=== PATIENT | male | born 1995 ===

== ENCOUNTER 2017-11-22 11:30 | Emergency (ER) | payer SELFPAY ==
--- NOTE | 2017-11-22 12:30 | ED PDOC ---
Arrival/HPI - General Chief Complaint: Anxiety Time Seen by Provider: 11/22/17 12:24 Historian: Patient - History of Present Illness Narrative History of Present Illness (Text): 11/22/17 12:24 22 y/o male, no significant pmh, psychiatric history including drug abuse heroine, nkda, bib c/o generalized bodyache/anxious/feeling cold for the past 2 days after stop using heroine. Pt. has been using heroine for the past 3 -4 months with his friends, stopped it for the and kids about 2-3 days ago , been having generalized bodyache feeling anxious and cold for the past 2-3 days, occasionally feeling suicidal from the withdrawing symptoms. Pt. has no homicidal or suicidal ideation now, no auditory or visual hallucination, no numbness or tingling, no palpitation, no chest pain or shortness of breath, no night sweat, no dizziness, no rash, no other medical or psychological complaints. Past Medical History - Provider Review Nursing Documentation Reviewed: Yes - Psychiatric Hx Psychophysiologic Disorder: No Hx Substance Use: Yes (HEROIN, CANNABIS) Family/Social History - Physician Review Nursing Documentation Reviewed: Yes Family/Social History: Unknown Family HX Smoking Status: Heavy Smoker > 10 Cigarettes Daily Hx Alcohol Use: Yes Frequency of alcohol use: Socially Hx Substance Use: Yes (HEROIN, CANNABIS) Allergies/Home Meds Allergies/Adverse Reactions: Allergies No Known Allergies Allergy (Verified 11/22/17 11:44) Home Medications: Home Meds Medication Instructions Recorded Confirmed No Known Home Med 11/22/17 11/22/17 Review of Systems - Review of Systems Constitutional: Fatigue. absent: Fevers Eyes: absent: Vision Changes ENT: absent: Hearing Changes, Rhinorrhea Respiratory: absent: SOB, Cough Cardiovascular: absent: Chest Pain Gastrointestinal: absent: Abdominal Pain, Nausea, Vomiting Musculoskeletal: Arthralgias, Myalgias. absent: Back Pain Skin: absent: Rash, Pruritis Neurological: absent: Headache, Dizziness Psychiatric: absent: Anxiety, Depression, Suicidal Ideation Physical Exam Vital Signs Reviewed: Yes Vital Signs Temp Pulse Resp BP Pulse Ox 11/22/17 17:00 68 18 114/72 99 11/22/17 15:00 74 18 121/78 98 11/22/17 13:32 72 18 118/79 98 11/22/17 11:44 98.1 F 85 16 119/76 99 Temperature: Afebrile Blood Pressure: Normal Pulse: Regular Respiratory Rate: Normal Appearance: Positive for: Uncomfortable Pain Distress: Moderate Mental Status: Positive for: Alert and Oriented X 3 - Systems Exam Head: Present: Atraumatic, Normocephalic Pupils: Present: PERRL Extroacular Muscles: Present: EOMI Conjunctiva: Present: Normal Ears: Present: NORMAL TM, Normal Canal. No: Erythema Mouth: Present: Moist Mucous Membranes Pharnyx: Present: Normal. No: ERYTHEMA, EXUDATE, TONSILS ENLARGED Nose (External): Present: Atraumatic. No: Abrasion, Contusion, Laceration, Lesions Nose (Internal): Present: Normal Inspection, No Active Bleeding, Rhinorrhea. No : Septal Hematoma, Epistaxis Neck: Present: Normal Range of Motion Respiratory/Chest: Present: Clear to Auscultation, Good Air Exchange. No: Respiratory Distress, Accessory Muscle Use Cardiovascular: Present: Regular Rate and Rhythm, Normal S1, S2. No: Murmurs Abdomen: No: Tenderness, Distention, Peritoneal Signs Back: Present: Normal Inspection Upper Extremity: Present: Normal Inspection, Normal ROM, NORMAL PULSES, Neurovascularly Intact, Capillary Refill < 2s. No: Cyanosis, Edema, Tenderness , Swelling, Erythema, Deformity Lower Extremity: Present: Normal Inspection, NORMAL PULSES, Normal ROM, Neurovascularly Intact, Capillary Refill < 2 s. No: Edema, Skye's Sign, Tenderness, Swelling, Erythema, Deformity Neurological: Present: GCS=15, CN II-XII Intact, Motor Func Grossly Intact, Gait Normal, Memory Normal Skin: Present: Warm, Dry, Normal Color. No: Rashes Lymphatic: No: Cervical Adenopathy Psychiatric: Present: Alert, Oriented x 3, Normal Insight, Normal Concentration , Anxious Medical Decision Making ED Course and Treatment: 11/22/17 12:41 Differential: Heroine Withdrawal vs. Rhabdomylosis vs. Electrolyte imbalance vs. UTI vs. depression/suicidal risk? -labs/ua -cxr -IVF/ativan 1mg -PES paged -Observe and reassess 11/22/17 13:58 -Chest xray: No active disease. -Labs show wbc 14.6, afebrile, likely stress and heroine withdrawal symptoms induced -UA show no UTI -UDS show +opiate and +cannabinoid -Pt. feels well after the IV ativan -Pt. is medically clear and stable for the psychiatric evaluation, pending PES 11/22/17 17:00 -Pt. complaining about lower back pain from the stretcher, no midline tenderness or paraspinal tenderness, no fall or trauma, no saddling gait, able to walk and stand, toradol 30mg IV ordered. -Pt. is waiting for the [facility] detox bed. 11/22/17 18:28 -Pt. has a bed at the [facility] detox floor, accepted by Dr. Kimbrough, ready for transfer, transfer paper signed. -Pt. request ativan prior to arrival as he feels restlessness with generalized pain on muscles, ativan 1mg IV ordered again. 11/22/17 18:32 -I spoke to Dr. Taylor, ER attending at [facility], discussed about the case /labs/radiology result, agreed to accept this patient and will notify psychiatric detox floor once arrival. -EKG: NSR @ 67 BPM, no ST elevation or depression, no T wave inversion. - Lab Interpretations Lab Results: 11/22/17 12:50 11/22/17 13:00 Lab Results 11/22/17 13:00: Urine Color Yellow, Urine Appearance Clear, Urine pH 6.5, Ur Specific Minong 1.020, Urine Protein 30 H, Urine Glucose (UA) Negative, Urine Ketones 40 H, Urine Blood Negative, Urine Nitrate Negative, Urine Bilirubin Negative, Urine Urobilinogen 1.0 H, Ur Leukocyte Esterase Negative, Urine RBC 0 - 2, Urine WBC 0 - 2, Ur Epithelial Cells 0 - 2, Urine Bacteria Few 11/22/17 13:00: Urine Opiates Screen Positive H, Urine Methadone Screen Negative , Ur Barbiturates Screen Negative, Ur Phencyclidine Scrn Negative, Ur Amphetamines Screen Negative, U Benzodiazepines Scrn Negative, U Oth Cocaine Metabols Negative, U Cannabinoids Screen Positive H 11/22/17 13:00: Sodium 145, Potassium 3.8, Chloride 109 H, Carbon Dioxide 22, Anion Gap 17, BUN 13, Creatinine 0.7 L, Est GFR ( Amer) > 60, Est GFR ( Non-Af Amer) > 60, Random Glucose 112 H, Calcium 9.4, Total Bilirubin 1.8 H, AST 26, ALT 23, Alkaline Phosphatase 68, Total Creatine Kinase 73, Total Protein 7.4, Albumin 4.4, Globulin 3.0, Albumin/Globulin Ratio 1.5 11/22/17 12:50: Alcohol, Quantitative < 10 11/22/17 12:50: Salicylates < 1 L, Acetaminophen < 10.0 L 11/22/17 12:50: WBC 14.6 H, RBC 4.81, Hgb 15.0, Hct 42.9, MCV 89.2, MCH 31.2, MCHC 35.0, RDW 12.4, Plt Count 325, MPV 9.9, Gran % 85.0 H, Lymph % (Auto) 10.7 L, Smyth % (Auto) 4.2, Eos % (Auto) 0.0 L, Baso % (Auto) 0.1, Gran # 12.41 H, Lymph # (Auto) 1.6, Smyth # (Auto) 0.6, Eos # (Auto) 0.0, Baso # (Auto) 0.01 I have reviewed the lab results: Yes - RAD Interpretation Radiology Orders: 11/22/17 12:32 CHEST PORTABLE [RAD] Stat Date of service: 11/22/2017 HISTORY: medical clearance COMPARISON: No prior. FINDINGS: LUNGS: No active pulmonary disease. PLEURA: No significant pleural effusion identified, no pneumothorax apparent. CARDIOVASCULAR: Normal. OSSEOUS STRUCTURES: No significant abnormalities. VISUALIZED UPPER ABDOMEN: Normal. OTHER FINDINGS: None. IMPRESSION: No active disease. Eight Section Blower: Radiologist - EKG Interpretation EKG Interpretation (Text): 11/22/17 18:43 -EKG: NSR @ 67 BPM, no ST elevation or depression, no T wave inversion. Interpreted by ED Physician: Yes Type: 12 lead EKG - Medication Orders Current Medication Orders: Discontinued Medications Sodium Chloride (Sodium Chloride 0.9%) 1,000 mls @ 999 mls/hr IV .Q1H1M STA Stop: 11/22/17 13:31 Last Admin: 11/22/17 12:50 Dose: 999 mls/hr eMAR Start Stop Document 11/22/17 12:50 GMD (Rec: 11/22/17 12:51 GMD [id number]) Intravenous Solution Start Date 11/22/17 Start Time 12:50 End Date 11/22/17 End time 13:51 Total Infusion Time 61 Ketorolac Tromethamine (Toradol) 30 mg IVP STAT STA Stop: 11/22/17 17:01 Last Admin: 11/22/17 17:22 Dose: 30 mg MAR Pain Assessment Document 11/22/17 17:22 GMD (Rec: 11/22/17 17:22 GMD [id number]) Pain Reassessment Is this a pain reassessment? No IVP Administration Document 11/22/17 17:22 GMD (Rec: 11/22/17 17:22 GMD [id number]) Charges for Administration # of IVP Administrations 1 Lorazepam (Ativan) 1 mg IVP ONCE ONE PRN Reason: Protocol Stop: 11/22/17 12:32 Last Admin: 11/22/17 12:50 Dose: 1 mg IVP Administration Document 11/22/17 12:50 GMD (Rec: 11/22/17 12:50 GMD [id number]) Charges for Administration # of IVP Administrations 1 Lorazepam (Ativan) 1 mg IVP ONCE ONE PRN Reason: Protocol Stop: 11/22/17 18:25 - PA / SECRETARY BOOKKEEPER / Resident Statement / has reviewed & agrees with the documentation as recorded. Disposition/Present on Arrival - Present on Arrival Any Indicators Present on Arrival: No History of DVT/PE: No History of Uncontrolled Diabetes: No Urinary Catheter: No History of Decub. Ulcer: No History Surgical Site Infection Following: None - Disposition Have Diagnosis and Disposition been Completed?: Yes Diagnosis: Heroin abuse, Drug abuse, Leukocytosis, Drug withdrawal Disposition: Transfer [facility] Disposition Time: 12:42 Patient Plan: Transfer To ([facility] [place] ER/Detox Psy floor) Patient Problems: Current Active Problems Problem Status Onset Heroin abuse Acute Drug abuse Acute Leukocytosis Acute Drug withdrawal Acute Condition: STABLE Forms: [employer] (Danish)
[2017-11-22] MEDS ORDERED: Sodium Chloride 0.9% 1,000 ML IV STA (12:31)
[2017-11-22 12:59] LABS: BASO # 0.01 K/mm3 (0.0-2.0); BASO % 0.1 % (0.0-3.0); GRAN # 12.41 (1.4-6.5); LYMPH # 1.6 (1.2-3.4); LYMPH % 10.7 % (22.0-35.0); MEAN CELL VOLUME 89.2 fl (80.0-105.0); MEAN CORPUSCULAR HEMOGLOBIN 31.2 pg (25.0-35.0); MEAN PLATELET VOLUME 9.9 fl (7.0-11.0); MONO # 0.6 (0.1-0.6); MONO % 4.2 % (1.0-6.0); RBC 4.81 10^6/uL (3.5-6.1); RED CELL DISTRIBUTION WIDTH 12.4 % (11.5-14.5); WHITE BLOOD COUNT 14.6 10^3/ul (4.5-11.0)
[2017-11-22 13:05] LABS: PH,URINE 6.5 (4.7-8.0); URINE BILIRUBIN NEGATIVE (NEGATIVE); URINE BLOOD NEGATIVE (NEGATIVE); URINE GLUCOSE (UA) NEGATIVE (NEGATIVE); URINE LEUKOCYTE ESTERASE NEGATIVE Leu/uL (NEGATIVE); URINE PROTEIN 30 mg/dL (<30 mg/dL)
[2017-11-22 13:08] LABS: URINE APPEARANCE CLEAR (CLEAR); URINE COLOR YELLOW (YELLOW)
--- NOTE | 2017-11-22 13:09 | RAD ---
Date of service: 11/22/2017 HISTORY: medical clearance COMPARISON: No prior. FINDINGS: LUNGS: No active pulmonary disease. PLEURA: No significant pleural effusion identified, no pneumothorax apparent. CARDIOVASCULAR: Normal. OSSEOUS STRUCTURES: No significant abnormalities. VISUALIZED UPPER ABDOMEN: Normal. OTHER FINDINGS: None. IMPRESSION: No active disease.
[2017-11-22 13:28] LABS: ALB/GLOB RATIO 1.5 (1.1-1.8); ALBUMIN 4.4 g/dL (3.0-4.8); ALT/SGPT 23 U/L (7-56); AST/SGOT 26 U/L (17-59); BLOOD UREA NITROGEN 13 mg/dL (7-21); CALCIUM 9.4 mg/dL (8.4-10.5); GFR AFRICAN-AMERICAN > 60; GFR NON-AFRICAN AMERICAN > 60
[2017-11-22 13:30] LABS: URINE EPITHELIAL CELLS 0 - 2 /hpf (0-5); URINE RBC 0 - 2 /hpf (0-2); URINE WBC 0 - 2 /hpf (0-6)
[2017-11-22 13:31] LABS: URINE BACTERIA FEW (NEG)
[2017-11-22 13:35] LABS: BARBITURATES, UR NEGATIVE (NEGATIVE); BENZODIAZEPINES, UR NEGATIVE (NEGATIVE); OPIATES, UR POSITIVE (NEGATIVE); PHENCYCLIDINE, UR NEGATIVE (NEGATIVE)
[2017-11-22 14:40] LABS: ACETAMINOPHEN < 10.0 ug/ml (10.0-20.0); SALICYLATE < 1 mg/dL (2.0-20.0)
[2017-11-22 15:02] VITALS: RESP 18
[2017-11-22 19:34] VITALS: BP 97/50; PULSE 76; TEMP 98.6; O2SAT 98
--- NOTE | 2017-11-23 08:34 | CARD ---
APPROVED REPORT Date of service: 11/22/2017 EKG Measurement Heart [id number] <Conclusion> Normal sinus rhythm Normal ECG
== END 2017-11-22 20:03 | disposition short-term general hospital (02) ==
LOC: ED 11:30
DX: F11.10 Opioid abuse, uncomplicated (principal); D72.829 Elevated white blood cell count, unspecified; F19.939 Other psychoactive substance use, unspecified with withdrawal, unspecified; F17.210 Nicotine dependence, cigarettes, uncomplicated
CPT/HCPCS: 71045; 80053; 81001; 82550; 85025; 90791; 93005; 96361; 96374; 96375; 96376; 99285; G0480; J1885; J2060; J7030

== ENCOUNTER 2018-01-13 21:16 | Emergency (ER) | payer SELFPAY ==
[2018-01-13 22:44] VITALS: RESP 18; TEMP 98.6; O2SAT 100; BMI 20.3
--- NOTE | 2018-01-14 00:39 | ED PDOC ---
Arrival/HPI - History of Present Illness Narrative History of Present Illness (Text): 01/14/18 00:49 22 y/o male with PMH of heroin abuse presents to the ED c/o lower back pain and anxiety x 10 hours. Pt states he has been without heroin since yesterday and that these symptoms are typical of his usual withdrawal. He snorted 2 bags of heroin yesterday and is withdrawing because he ran out of the drug. Pt has been an addict for approx. 5 months. Denies using any other substances. Denies trauma, fever, abdominal pain, N/V, headache, dizziness, chest pain, palpitations, difficulty breathing, rash, bowel or bladder incontinence, saddle anesthesia. <Kena Mckeon - Last Filed: 01/14/18 00:34> <Yo Brunner - Last Filed: 01/17/18 10:30> - General Chief Complaint: Substance Abuse Time Seen by Provider: 01/13/18 22:03 Past Medical History - Provider Review Nursing Documentation Reviewed: Yes - Cardiac Hx Hypertension: No - Pulmonary Hx Tuberculosis: No - Neurological Hx Seizures: No - Hematological/Oncological Hx Cancer: No - Musculoskeletal/Rheumatological Hx Falls: No - Genitourinary/Gynecological Hx Sexually Transmitted Diseases: No - Psychiatric Hx Psychophysiologic Disorder: No Hx Substance Use: Yes - Anesthesia Hx Anesthesia: No Hx Anesthesia Reactions: No Hx Malignant Hyperthermia: No <Kena Mckeon - Last Filed: 01/14/18 00:34> Family/Social History - Physician Review Nursing Documentation Reviewed: Yes Family/Social History: No Known Family HX Smoking Status: Heavy Smoker > 10 Cigarettes Daily Hx Alcohol Use: Yes Hx Substance Use: Yes Substance used: heroin, marijuana <Kena Mckeon - Last Filed: 01/14/18 00:34> Allergies/Home Meds <Kena Mckeon - Last Filed: 01/14/18 00:34> <Yo Brunner - Last Filed: 01/17/18 10:30> Allergies/Adverse Reactions: Allergies alprazolam [From Xanax] Allergy (Verified 01/13/18 22:17) RASH Home Medications: Home Meds Medication Instructions Recorded Confirmed RX: No Known Home Med 01/13/18 01/13/18 Review of Systems - Physician Review All systems were reviewed & negative as marked: Yes - Review of Systems Constitutional: Fatigue. absent: Fevers Eyes: Normal ENT: Normal Respiratory: Normal. absent: Cough, Sputum Cardiovascular: Normal. absent: Chest Pain, Palpitations, Syncope Gastrointestinal: Normal Musculoskeletal: Back Pain Skin: Normal Neurological: Normal. absent: Headache, Dizziness Endocrine: Diaphoresis Psychiatric: Anxiety <Kena Mckeon - Last Filed: 01/14/18 00:34> Physical Exam Vital Signs Reviewed: Yes Vital Signs Temp Pulse Resp BP Pulse Ox 01/13/18 22:30 98.6 F 68 18 121/70 100 Temperature: Afebrile Blood Pressure: Normal Pulse: Regular Respiratory Rate: Normal Appearance: Positive for: Well-Appearing Pain Distress: None Mental Status: Positive for: Alert and Oriented X 3 - Systems Exam Head: Present: Atraumatic, Normocephalic Pupils: Present: PERRL Extroacular Muscles: Present: EOMI Conjunctiva: Present: Normal Mouth: Present: Moist Mucous Membranes Pharnyx: Present: Normal. No: ERYTHEMA, EXUDATE Nose (Internal): Present: Normal Inspection, Moist, Clear Mucous Neck: Present: Normal Range of Motion. No: Paraspinal Tenderness Respiratory/Chest: Present: Clear to Auscultation, Good Air Exchange. No: Respiratory Distress, Accessory Muscle Use Cardiovascular: Present: Regular Rate and Rhythm, Normal S1, S2. No: Murmurs Abdomen: No: Tenderness, Distention, Peritoneal Signs Back: Present: Paraspinal Tenderness (lumbar). No: CVA Tenderness, Midline Tenderness Upper Extremity: Present: Normal Inspection, Normal ROM, NORMAL PULSES. No: Cyanosis, Edema Lower Extremity: Present: Normal Inspection, NORMAL PULSES, Normal ROM. No: Edema Neurological: Present: GCS=15, CN II-XII Intact, Speech Normal Skin: Present: Warm, Dry, Normal Color. No: Rashes Lymphatic: No: Cervical Adenopathy Psychiatric: Present: Alert, Oriented x 3, Normal Insight, Normal Concentration <Kena Mckeon - Last Filed: 01/14/18 00:34> Vital Signs Temp Pulse Resp BP Pulse Ox 01/14/18 00:30 59 L 18 120/79 100 01/13/18 22:30 98.6 F 68 18 121/70 100 <Yo Brunner - Last Filed: 01/17/18 10:30> Medical Decision Making ED Course and Treatment: 01/14/18 00:35 22 y/o male with PMH of heroin abuse presents to the ED c/o lower back pain and anxiety x 10 hours. Pt states he has been without heroin since yesterday and that these symptoms are typical of his usual withdrawal. He snorted 2 bags of heroin yesterday and is withdrawing because he ran out of the drug. Pt has been an addict for approx. 5 months. Denies using any other substances. Denies trauma, fever, abdominal pain, N/V, headache, dizziness, chest pain, palpitations, difficulty breathing, rash, bowel or bladder incontinence, saddle anesthesia. Physical exam reveals mild lumbar paraspinal tenderness. Cardiac, pulm, and abdominal exam normal. will give tylenol for pain will give vistaril for anxiety (per Dr. Brunner) Pt educated on the dangers of heroin use Impression: Opioid withdrawal Plan: Take tylenol as needed for pain Followup with clinic within 2 days Refrain from using heroin Return to ED if symptoms persist or worsen Plan discussed with pt and partner who understand and agree. Pt comfortable with discharge home. - Medication Orders Current Medication Orders: Discontinued Medications Acetaminophen (Tylenol 325mg Tab) 650 mg PO STAT STA Stop: 01/13/18 22:47 Last Admin: 01/13/18 22:57 Dose: 650 mg MAR Pain/Vitals Document 01/13/18 22:57 AD (Rec: 01/13/18 22:58 [place] [facility] [id number] Location Upper or Lower Lower Pain Location Body Site Back Intensity 5 Scale Used Numeric Hydroxyzine Pamoate (Vistaril) 25 mg PO STAT STA; Protocol Stop: 01/13/18 23:18 Last Admin: 01/13/18 23:56 Dose: 25 mg Lorazepam (Ativan) 1 mg PO ONCE ONE; Protocol Stop: 01/13/18 22:59 Last Admin: 01/13/18 23:56 Dose: Not Given Non-Admin Reason: allergy to benzos <MotterKena - Last Filed: 01/14/18 00:34> - Medication Orders Current Medication Orders: Discontinued Medications Acetaminophen (Tylenol 325mg Tab) 650 mg PO STAT STA Stop: 01/13/18 22:47 Last Admin: 01/13/18 22:57 Dose: 650 mg MAR Pain/Vitals Document 01/13/18 22:57 AD (Rec: 01/13/18 22:58 AD [facility] [id number] Location Upper or Lower Lower Pain Location Body Site Back Intensity 5 Scale Used Numeric Hydroxyzine Pamoate (Vistaril) 25 mg PO STAT STA; Protocol Stop: 01/13/18 23:18 Last Admin: 01/13/18 23:56 Dose: 25 mg Lorazepam (Ativan) 1 mg PO ONCE ONE; Protocol Stop: 01/13/18 22:59 Last Admin: 01/13/18 23:56 Dose: Not Given Non-Admin Reason: allergy to benzos <Yo Brunner - Last Filed: 01/17/18 10:30> - PA / EXERCISER / Resident Statement / has reviewed & agrees with the documentation as recorded. <Yo Brunner - Last Filed: 01/17/18 10:30> Disposition/Present on Arrival - Present on Arrival Any Indicators Present on Arrival: No History of DVT/PE: No History of Uncontrolled Diabetes: No Urinary Catheter: No History of Decub. Ulcer: No History Surgical Site Infection Following: None - Disposition Have Diagnosis and Disposition been Completed?: Yes Disposition Time: 11:45 Patient Plan: Discharge <Kena Mckeon - Last Filed: 01/14/18 00:34> <Yo Brunner - Last Filed: 01/17/18 10:30> - Disposition Diagnosis: Withdrawal from opioids Disposition: HOME/ ROUTINE Condition: IMPROVED Discharge Instructions (ExitCare): Drug Abuse and Drug Addiction (DC) Additional Instructions: Take tylenol as needed for pain Followup with clinic within 2 days Refrain from using heroin Return to ED if symptoms persist or worsen Referrals: Sabrina Lu MD [Medical Doctor] - Follow up with primary Forms: [employer] (Sri Lankan)
[2018-01-14 00:58] VITALS: BP 120/79; PULSE 59
== END 2018-01-14 00:30 | disposition home or self-care (01) ==
LOC: ED 21:16
DX: F11.23 Opioid dependence with withdrawal (principal); F17.210 Nicotine dependence, cigarettes, uncomplicated
CPT/HCPCS: 99283; Q0177

== ENCOUNTER 2018-02-27 17:32 | Emergency (ER) | payer SELFPAY ==
[2018-02-27 17:33] VITALS: BMI 20.3
--- NOTE | 2018-02-27 18:30 | ED PDOC ---
Arrival/HPI - General Chief Complaint: Altered Mental Status Time Seen by Provider: 02/27/18 17:55 Historian: Patient - History of Present Illness Narrative History of Present Illness (Text): 02/27/18 18:26 22 yo M presents to the ER after being brought in by EMS for evaluation. Patient states that he was found by police at a house (could not specify which house). He only reports of low back pain. Denies any trauma, injury, heavy lifting, headache, dizziness, CP, SOB, abdominal pain, nausea, vomiting, urinary symptoms, bowel/bladder incontinence, weakness or numbness, SI/HI, hallucinations. Denies any alcohol or drug use. Past Medical History - Cardiac Hx Hypertension: No - Pulmonary Hx Tuberculosis: No - Neurological Hx Seizures: No - Hematological/Oncological Hx Cancer: No - Musculoskeletal/Rheumatological Hx Falls: No - Genitourinary/Gynecological Hx Sexually Transmitted Diseases: No - Psychiatric Hx Psychophysiologic Disorder: No Hx Substance Use: Yes - Anesthesia Hx Anesthesia: No Hx Anesthesia Reactions: No Hx Malignant Hyperthermia: No Family/Social History Family/Social History: No Known Family HX Smoking Status: Heavy Smoker > 10 Cigarettes Daily Hx Alcohol Use: Yes Frequency of alcohol use: Few days per week Hx Substance Use: Yes Substance used: heroin, marijuana Allergies/Home Meds Allergies/Adverse Reactions: Allergies alprazolam [From Xanax] Allergy (Verified 02/27/18 17:47) RASH Home Medications: Home Meds Medication Instructions Recorded Confirmed No Known Home Med 01/13/18 02/27/18 Review of Systems - Review of Systems Constitutional: absent: Fatigue, Fevers Respiratory: absent: SOB, Cough Cardiovascular: absent: Chest Pain, Palpitations, Edema Gastrointestinal: absent: Abdominal Pain, Diarrhea, Vomiting Genitourinary Male: absent: Dysuria, Frequency, Hematuria Musculoskeletal: Back Pain. absent: Arthralgias, Neck Pain Skin: absent: Rash, Pruritis, Skin Lesions Neurological: absent: Headache, Dizziness Physical Exam Temperature: Afebrile Blood Pressure: Normal Pulse: Regular Respiratory Rate: Normal Appearance: Positive for: Well-Appearing, Non-Toxic, Comfortable Pain Distress: None Mental Status: Positive for: Alert and Oriented X 3 - Systems Exam Head: Present: Atraumatic, Normocephalic Pupils: Present: PERRL Extroacular Muscles: Present: EOMI Conjunctiva: Present: Normal Mouth: Present: Moist Mucous Membranes Neck: Present: Normal Range of Motion. No: MIDLINE TENDERNESS, Paraspinal Tenderness Respiratory/Chest: Present: Clear to Auscultation, Good Air Exchange. No: Respiratory Distress, Accessory Muscle Use Cardiovascular: Present: Regular Rate and Rhythm, Normal S1, S2. No: Murmurs Abdomen: No: Tenderness, Distention, Peritoneal Signs Back: Present: Normal Inspection. No: Midline Tenderness, Paraspinal Tenderness Upper Extremity: Present: Normal Inspection. No: Cyanosis, Edema Lower Extremity: Present: Normal Inspection. No: Edema Neurological: Present: GCS=15, CN II-XII Intact, Speech Normal, Motor Func Grossly Intact, Normal Sensory Function Skin: Present: Warm, Dry, Normal Color. No: Rashes Psychiatric: Present: Alert, Oriented x 3 Medical Decision Making ED Course and Treatment: 02/27/18 18:29 Previous medical records reviewed, patient was last seen here in Dec for back pain and heroin withdrawal. 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 Alcohol (-). UDS +cocaine, cannabis, opiates. 22:00 On reevaluation, patient is now more awake alert and oriented 3 in no acute distress, reports no back pain, he is able to give me his exact address, states that he feels well and wants to go home. Patient able to stand, ambulate with a steady gait, no tremors, no slurred speech, repeat neuro exam shows no focal findings. Patient is stable for d/c. Advised to follow up with primary care physician or the clinic in 1-2 days without fail. Advised to seek help for his cocaine and opiate use. Return to the emergency room at any time for any new or worsening symptoms. - PA / ORTHOPAEDIC SURGEON / Resident Statement MD/DO has reviewed & agrees with the documentation as recorded. Disposition/Present on Arrival - Present on Arrival Any Indicators Present on Arrival: No History of DVT/PE: No History of Uncontrolled Diabetes: No Urinary Catheter: No History of Decub. Ulcer: No History Surgical Site Infection Following: None - Disposition Have Diagnosis and Disposition been Completed?: Yes Diagnosis: Polysubstance abuse Disposition: HOME/ ROUTINE Disposition Time: 22:00 Patient Plan: Discharge Patient Problems: Current Active Problems Problem Status Onset Polysubstance abuse Acute Condition: STABLE Discharge Instructions (ExitCare): Polysubstance Abuse Ref[place]: [facility] [place] [facility] [place] - Follow up with primary Forms: [employer] (Gibraltarian)
[2018-02-27 19:37] LABS: BARBITURATES, UR NEGATIVE (NEGATIVE); BENZODIAZEPINES, UR NEGATIVE (NEGATIVE); OPIATES, UR POSITIVE (NEGATIVE); PHENCYCLIDINE, UR NEGATIVE (NEGATIVE)
[2018-02-27 23:12] VITALS: RESP 17; O2SAT 98
[2018-02-27 23:13] VITALS: BP 105/58; PULSE 91; TEMP 98.2
--- NOTE | 2018-02-28 10:38 | CARD ---
APPROVED REPORT Date of service: 02/27/2018 EKG Measurement Heart [id number] <Conclusion> Sinus bradycardia Otherwise normal ECG
== END 2018-02-27 23:12 | disposition home or self-care (01) ==
LOC: ED 17:32
DX: F19.10 Other psychoactive substance abuse, uncomplicated (principal)
CPT/HCPCS: 93005; 99285; G0480

== ENCOUNTER 2018-06-27 19:19 | Emergency (ER) | payer SELFPAY | END 2018-06-27 20:44 | disposition home or self-care (01) | LOC: ED 19:19 ==

== ENCOUNTER 2018-09-05 07:07 | Inpatient (IN) | payer MEDICAID, OTHER ==
[2018-09-05 07:07] VITALS: BMI 20.3
--- NOTE | 2018-09-05 07:44 | ED PDOC ---
Arrival/HPI - General Chief Complaint: Psychiatric Evaluation Time Seen by Provider: 09/05/18 07:10 Historian: Patient - History of Present Illness Narrative History of Present Illness (Text): 09/05/18 07:46 A 22 year old male, whose past medical history includes chronic heroin use, presents to the emergency department complaining of suicidal ideation. Patient admits to snorting heroin, last was yesterday afternoon. Patient currently complaining of experiencing tremulousness, lack of concentration, body aches, and abdominal pain. Patient reports last night he attempted to hang himself in his closet by tying a rope around his neck, but was unsuccessful. Patient denies any other complaints at this time. Past Medical History - Provider Review Nursing Documentation Reviewed: Yes - Infectious Disease Hx of Infectious Diseases: None - Cardiac Hx Hypertension: No - Pulmonary Hx Tuberculosis: No - Neurological Hx Seizures: No - Hematological/Oncological Hx Cancer: No - Musculoskeletal/Rheumatological Hx Falls: No - Genitourinary/Gynecological Hx Sexually Transmitted Diseases: No - Psychiatric Hx Psychophysiologic Disorder: No Hx Substance Use: Yes - Anesthesia Hx Anesthesia: No Hx Anesthesia Reactions: No Hx Malignant Hyperthermia: No Family/Social History - Physician Review Nursing Documentation Reviewed: Yes Family/Social History: No Known Family HX Smoking Status: Heavy Smoker > 10 Cigarettes Daily Hx Alcohol Use: Yes Hx Substance Use: Yes Substance used: heroin, marijuana Allergies/Home Meds Allergies/Adverse Reactions: Allergies alprazolam [From Xanax] Allergy (Verified 09/05/18 07:20) RASH Home Medications: Home Meds Medication Instructions Recorded Confirmed No Known Home Med 01/13/18 02/27/18 Review of Systems - Physician Review All systems were reviewed & negative as marked: Yes - Review of Systems Gastrointestinal: Abdominal Pain Musculoskeletal: Myalgias Neurological: Other (tremulousness) Psychiatric: Suicidal Ideation, Other (lack of concentration) Physical Exam Vital Signs Reviewed: Yes Vital Signs Temp Pulse Resp BP Pulse Ox 09/05/18 07:19 97.4 F L 58 L 18 106/52 L 100 09/05/18 07:16 57 L 20 106/52 L 100 Blood Pressure: Normal Pulse: Regular Respiratory Rate: Normal Appearance: Positive for: Unkept Pain Distress: None Mental Status: Positive for: Alert and Oriented X 3 - Systems Exam Head: Present: Ecchymosis (several ecchymotic areas on faces), Other (skin lesions to face) Pupils: Present: PERRL Extroacular Muscles: Present: EOMI Conjunctiva: Present: Normal Mouth: Present: Moist Mucous Membranes Neck: Present: Normal Range of Motion Respiratory/Chest: Present: Clear to Auscultation, Good Air Exchange. No: Respiratory Distress, Accessory Muscle Use Cardiovascular: Present: Bradycardic Abdomen: Present: Tenderness (tender to palpation to epigastric region). No: Distention, Peritoneal Signs, Guarding Back: Present: Normal Inspection Upper Extremity: Present: Normal Inspection. No: Cyanosis, Edema Lower Extremity: Present: Normal Inspection. No: Edema Neurological: Present: GCS=15, CN II-XII Intact, Speech Normal, Other (tremulous) Skin: Present: Warm, Dry, Normal Color. No: Rashes Psychiatric: Present: Alert, Oriented x 3, Normal Insight, Normal Concentration Medical Decision Making ED Course and Treatment: 09/05/18 07:51 Impression: 22 year old male with SI, tremulousness, body aches, and abdominal pain. Plan: -- Labs -- Chest X-ray -- Urinalysis --EKG --Drug Screen --UA -- Ativan -- Reassess and disposition Prior Visits: Patient was last seen here in the emergency department on 06/27/2018 for withdrawal and no suidicidal ideation. Patient was seen by HANNAH Rogers who referred to detox facilities available for him the following day to follow-up with. Patient at the time agreed and stated he would do so. Patient was discharged home. Progress Notes: 09/05/18 10:39 Patient medically cleared and evaluated by HANNAH special forces medical sergeant. HANNAH special forces medical sergeant evaluates patient offering him detox at [facility], but after discussion with the attending, clears patient for admission. - Lab Interpretations Lab Results: 09/05/18 07:30 09/05/18 07:30 Lab Results 09/05/18 07:30: Alcohol, Quantitative < 10 09/05/18 07:30: Salicylates < 1 L, Acetaminophen < 10.0 L 09/05/18 07:30: Sodium 143, Potassium 4.2, Chloride 107, Carbon Dioxide 22, Anion Gap 18, BUN 11, Creatinine 1.1, Est GFR ( Amer) > 60, Est GFR (Non- Af Amer) > 60, Random Glucose 102, Calcium 9.8, Magnesium 2.1, Total Bilirubin 1.1, AST 35, ALT 30, Alkaline Phosphatase 91, Total Protein 8.0, Albumin 4.4, Globulin 3.5, Albumin/Globulin Ratio 1.2 09/05/18 07:30: WBC 10.6, RBC 4.58, Hgb 14.3, Hct 42.7, MCV 93.2 D, MCH 31.2, MCHC 33.5, RDW 12.9, Plt Count 358, MPV 9.4, Neut % (Auto) 70.1 H, Lymph % (Auto) 23.3, [place] % (Auto) 5.7, Eos % (Auto) 0.8 L, Baso % (Auto) 0.1, Lymph # (Auto) 2.5, [place] # (Auto) 0.6, Eos # (Auto) 0.1, Baso # (Auto) 0.01, Absolute Neuts (auto) 7.43 H I have reviewed the lab results: Yes - RAD Interpretation Narrative RAD Interpretations (Text): 09/05/2018 10:09 Chest X-ray IMPRESSION: No active disease. Dictator: Dustin Mckeon MD Radiology Orders: 09/05/18 07:26 CHEST PORTABLE [RAD] Stat - EKG Interpretation EKG Interpretation (Text): 09/05/18 11:17 NSR @ [address] aberration No T wave inversions No QT prolongation Interpreted by ED Physician: Yes Type: 12 lead EKG - Scribe Statement The provider has reviewed the documentation as recorded by the Manju Connors Provider Scribe Attestation: All medical record entries made by the Manju were at my direction and personally dictated by me. I have reviewed the chart and agree that the record accurately reflects my personal performance of the history, physical exam, medical decision making, and the department course for this patient. I have also personally directed, reviewed, and agree with the discharge instructions and disposition. Disposition/Present on Arrival - Present on Arrival History of DVT/PE: No History of Uncontrolled Diabetes: No Urinary Catheter: No History of Decub. Ulcer: No History Surgical Site Infection Following: None - Disposition
[2018-09-05 07:45] LABS: BASO # 0.01 K/mm3 (0.0-2.0); BASO % 0.1 % (0.0-3.0); EOS # 0.1 (0.0-0.7); EOS % 0.8 % (1.5-5.0); HEMOGLOBIN 14.3 g/dL (14.0-18.0); LYMPH # 2.5 (1.2-3.4); LYMPH % 23.3 % (22.0-35.0); MEAN CELL VOLUME 93.2 fl (80.0-105.0); MEAN CORPUSCULAR HEMOGLOBIN 31.2 pg (25.0-35.0); MEAN CORPUSCULAR HGB CONC 33.5 g/dl (31.0-37.0); MEAN PLATELET VOLUME 9.4 fl (7.0-11.0); MONO # 0.6 (0.1-0.6); MONO % 5.7 % (1.0-6.0); RBC 4.58 10^6/uL (3.5-6.1); RED CELL DISTRIBUTION WIDTH 12.9 % (11.5-14.5); WHITE BLOOD COUNT 10.6 10^3/uL (4.5-11.0)
[2018-09-05 07:51] LABS: ALB/GLOB RATIO 1.2 (1.1-1.8); ALBUMIN 4.4 g/dL (3.0-4.8); ALT/SGPT 30 U/L (7-56); AST/SGOT 35 U/L (17-59); BLOOD UREA NITROGEN 11 mg/dL (7-21); CALCIUM 9.8 mg/dL (8.4-10.5); GFR NON-AFRICAN AMERICAN > 60
[2018-09-05 07:52] LABS: ACETAMINOPHEN < 10.0 ug/ml (10.0-20.0); SALICYLATE < 1 mg/dL (2.0-20.0)
[2018-09-05 09:52] VITALS: O2SAT 98
--- NOTE | 2018-09-05 10:13 | RAD ---
Date of service: 09/05/2018 HISTORY: psych prescreen COMPARISON: 11/22/2017 TECHNIQUE: 1 view obtained. FINDINGS: LUNGS: No active pulmonary disease. PLEURA: No significant pleural effusion identified, no pneumothorax apparent. CARDIOVASCULAR: No aortic atherosclerotic calcification present. Normal cardiac size. No pulmonary vascular congestion. OSSEOUS STRUCTURES: No significant abnormalities. VISUALIZED UPPER ABDOMEN: Normal. OTHER FINDINGS: None. IMPRESSION: No active disease.
[2018-09-05 10:59] LABS: URINE BILIRUBIN NEGATIVE (NEGATIVE); URINE BLOOD NEGATIVE (NEGATIVE); URINE GLUCOSE (UA) NEGATIVE (NEGATIVE); URINE LEUKOCYTE ESTERASE NEGATIVE Leu/uL (NEGATIVE); URINE PROTEIN 30 mg/dL (<30 mg/dL); URINE UROBILINOGEN 0.2 E.U./dL (<1 E.U./dL)
[2018-09-05 11:00] LABS: URINE APPEARANCE CLEAR (CLEAR); URINE COLOR YELLOW (YELLOW)
[2018-09-05 11:11] LABS: BARBITURATES, UR NEGATIVE (NEGATIVE); BENZODIAZEPINES, UR NEGATIVE (NEGATIVE); OPIATES, UR POSITIVE (NEGATIVE); PHENCYCLIDINE, UR NEGATIVE (NEGATIVE)
[2018-09-05 11:12] LABS: URINE BACTERIA MOD /hpf; URINE RBC 0 - 2 /hpf (0-2)
[2018-09-05 11:13] LABS: URINE FINE GRANULAR CAST 0 - 2 /hpf
[2018-09-05] MEDS ORDERED: Alum-Mag Hydrox-Simethicone Susp (30 mL) PO PRN (11:32)
[2018-09-05] MEDS ORDERED: Magnesium Hydroxide Susp 30 ml UD PO PRN (11:32)
--- NOTE | 2018-09-05 15:00 | PCM.BM ---
<Wil Berg - Last Filed: 09/05/18 14:58> Treatment Plan Problems - Problems identified on initial assessmt Hopelessness Date Initiated: 09/05/18 Time Initiated: 14:58 Assessment reference: NA Priority: 1 Ineffective Coping Date Initiated: 09/05/18 Time Initiated: 14:59 Assessment reference: NA Status: Active Priority: 2 Anxiety Related to Subs Abuse Date Initiated: 09/05/18 Time Initiated: 14:59 Assessment reference: NA Status: Active Priority: 3 Suicidal Ideation Date Initiated: 09/05/18 Time Initiated: 15:00 Assessment reference: NA Status: Active Priority: 4 Treatment assets and liabiliti Patient Assests: ADL independent, negotiates basic needs, cognitively intact - Milieu Protocol Maintain good personal hygiene: daily Encourage regular showers, daily Remind patient to perform daily oral care, daily Assist patient to perform ADL's Conduct patient checks and document Observation sheet: Q15 minutes Maintain personal safety: daily Educate patient to report safety concerns to staff, daily Monitor environment for contraband/sharps Medication safety: Monitor for expected outcome, potential side effects: daily, Assess barriers to learning: daily, Assess readiness for medication education: daily Discharge/Continuing Care - Education Needs Education Needs: Patient Medication, Patient Coping Skills, Patient Aftercare Safety Plan - Discharge Discharge Criteria: Tolerates medication w/o severe side effects, Free of Suicidal thoughts Discharge to:: Home <Nissa Carpio - Last Filed: 09/06/18 08:16> - Diagnosis (1) MDD (major depressive disorder) Status: Acute Interventions: 09/06/18 08:16 Psychoeducation Psychopharmacology/adjustment of medications as needed/ monitoring possible side effects Evaluate pt on daily basis Compliance with medications and follow up appointments Suicide and homicide risk assessment and prevention Relapse prevention Reduction of symptoms Improve functional status Family involvement As outpatient: cognitive behavioral therapy (2) Opiate dependence Status: Acute Interventions: 09/06/18 08:17 Monitoring withdrawal symptoms Medical detoxification Pharmacotherapy for alcohol/benzos/opioid dependence Maintaining sobriety Relapse prevention Possible rehabilitation Motivational interviewing 12-step programs: AA meetings <Sarah Mcclellan - Last Filed: 09/06/18 12:00> Family Contact Family involvement: Family/SO is involved Family contact: Patient agrees to contact Family contact name: Florence Cunningham() Family contacted how many times per week?: 2 <Sue Nunn - Last Filed: 09/06/18 12:13>
--- NOTE | 2018-09-05 18:11 | CARD ---
APPROVED REPORT Date of service: 09/05/2018 EKG Measurement Heart [id number] <Conclusion> Normal sinus rhythm Minor intraventricular conduction delay of RBBB type May be normal variant for age
[2018-09-06] MEDS ORDERED: Multivitamin Therapeutic Tab PO STA (12:11)
--- NOTE | 2018-09-06 14:09 | PCM.PSYCH ---
Initial Psychiatric Evaluation - Initial Psychiatric Evaluation Type of Admission: Voluntary Legal Status: Capacity Chief Complaint (in patient's own words): "I decided to stop using heroin, I was feeling very sick, I tried to hang myself..." Patient's Reaction to Hospitalization: pt was admitted for evaluation stabilization of depressive symptoms, possible suicidal ideation, as per report pt tried to hang self in the context of opioid withdrawals. 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 Patient requires further evaluation stabilization and medication management. Patient was seen and examined today at the treatment team meeting, patient presented to be withdrawn, reported that he has withdrawal symptoms, reported to have upset stomach, and body chills. Susceptible personal hygiene, fair ADLs but at the same time patient appears to be careless about his presentation. Patient reported that he decided to stop using drugs, as a result "I had bad withdrawals" as a result patient attempted to hang himself in the closet. Patient reported that his called 911 because of this event. Patient reported that recently he was not feeling depressed or hopeless, patient denied suicidal ideation for the past 2 weeks. Patient denied hearing voices, denied, denied paranoid ideations. Patient reported that he was using about 10 bags of heroin a day approximately worth 100$ daily, "I sniff it", pt denied other drug use, smokes about 3cigarettes a day. Denied alcohol abuse. pt reported started to use heroin about 2 years ago, pt's friend introduced him, pt was not able to understand the question when he realized that opioids became a problem for him. Patient gave consent to contact his , Florence Cunningham. Patient reports his does not work, as per pt does not use any drugs. Past psychiatric history: Denied Medical history: Denied Family history: denied family h/o of mental illness 09/05/18 07:30 09/05/18 07:30 Lab Results 09/05/18 10:39: Urine Opiates Screen Positive H, Urine Methadone Screen Negative, Ur Barbiturates Screen Negative, Ur Phencyclidine Scrn Negative, Ur Amphetamines Screen Negative, U Benzodiazepines Scrn Negative, U Oth Cocaine Metabols Positive H, U Cannabinoids Screen Positive H 09/05/18 10:39: Urine Color Yellow, Urine Appearance Clear, Urine pH 6.0, Ur Specific [place] 1.025, Urine Protein 30 H, Urine Glucose (UA) Negative, Urine Ketones 15 H, Urine Blood Negative, Urine Nitrate Negative, Urine Bilirubin Negative, Urine Urobilinogen 0.2, Ur Leukocyte Esterase Negative, Urine RBC 0 - 2, Urine WBC 2 - 5, Ur Epithelial Cells 1 - 3, Urine Bacteria Mod, Fine Granular Casts 0 - 2 09/05/18 07:30: Alcohol, Quantitative < 10 09/05/18 07:30: Salicylates < 1 L, Acetaminophen < 10.0 L 09/05/18 07:30: Sodium 143, Potassium 4.2, Chloride 107, Carbon Dioxide 22, Anion Gap 18, BUN 11, Creatinine 1.1, Est GFR ( Amer) > 60, Est GFR (Non- Af Amer) > 60, Random Glucose 102, Calcium 9.8, Magnesium 2.1, Total Bilirubin 1.1, AST 35, ALT 30, Alkaline Phosphatase 91, Total Protein 8.0, Albumin 4.4, Globulin 3.5, Albumin/Globulin Ratio 1.2 09/05/18 07:30: WBC 10.6, RBC 4.58, Hgb 14.3, Hct 42.7, MCV 93.2 D, MCH 31.2, MCHC 33.5, RDW 12.9, Plt Count 358, MPV 9.4, Neut % (Auto) 70.1 H, Lymph % (Auto) 23.3, [place] % (Auto) 5.7, Eos % (Auto) 0.8 L, Baso % (Auto) 0.1, Lymph # (Auto) 2.5, [place] # (Auto) 0.6, Eos # (Auto) 0.1, Baso # (Auto) 0.01, Absolute Neuts (auto) 7.43 H Vital Signs Temp Pulse Resp BP Pulse Ox 09/06/18 09:20 97.6 F 74 17 109/60 09/06/18 07:15 98.1 F 59 L 18 86/47 L 09/05/18 15:43 70 121/64 09/05/18 11:43 18 09/05/18 10:37 98.0 F 68 18 116/43 L 98 09/05/18 09:51 97.9 F 61 25 H 121/42 L 98 09/05/18 07:19 97.4 F L 58 L 18 106/52 L 100 09/05/18 07:16 57 L 20 106/52 L 100 The patient failed the outpatient lower level of care: Yes Current Medications: Active Medications Generic Name Dose Route Start Last Admin Trade Name Freq PRN Reason Stop Dose Admin Acetaminophen 650 mg 09/05/18 11:32 09/05/18 13:53 Tylenol 325mg Tab PO 650 mg Q4 PRN Administration Headache Al Hydrox/Mg Hydrox/Simethicone 30 ml 09/05/18 11:32 Maalox Plus 30 Ml PO DAILY PRN Upset Stomach Clonazepam 1 mg 09/05/18 22:00 09/05/18 21:36 Klonopin PO 1 mg Q12H RAJENDRA Administration Protocol Clonidine HCl 0.1 mg 09/05/18 13:17 09/05/18 14:49 Catapres PO 0.1 mg Q8H PRN Administration OPIATE WITHDRAWAL Magnesium Hydroxide 30 ml 09/05/18 11:32 Milk Of Magnesia PO DAILY PRN Constipation Quetiapine Fumarate 25 mg 09/05/18 16:00 09/05/18 16:59 Seroquel PO 25 mg BID RAJENDRA Administration Protocol Quetiapine Fumarate 50 mg 09/05/18 22:00 09/05/18 21:37 Seroquel PO 50 mg HS RAJENDRA Administration Protocol Present on Admission - Present on Admission Any Indicators Present on Admission: No History of DVT/PE: No History of Uncontrolled Diabetes: No Urinary Catheter: No Decubitus Ulcer Present: No Review of Systems - Review of Systems Systems not reviewed;Unavailable: Acuity of Condition - Constitutional Constitutional: As Per HPI - EENT Eyes: As Per HPI Ears: As Per HPI Nose/Mouth/Throat: As Per HPI - Cardiovascular Cardiovascular: As Per HPI - Respiratory Respiratory: As Per HPI - Gastrointestinal Gastrointestinal: As Per HPI - Genitourinary Genitourinary: As Per HPI - Reproductive: Male Reproductive:Male: As Per HPI - Musculoskeletal Musculoskeletal: As Per HPI - Integumentary Integumentary: As Per HPI - Neurological Neurological: As Per HPI - Psychiatric Psychiatric: As Per HPI - Endocrine Endocrine: As Per HPI - Hematologic/Lymphatic Hematologic: As Per HPI Past Patient History - Past Psychiatric History Previous Treatment History: None Prior Professional Help: See HPI Prior Psychiatric Treatment: See HPI At what hospital: See HPI Duration: See HPI Nature of Treatment: See HPI Explanation of prior treatment: See HPI - PSYCHIATRIC Hx Psychophysiologic Disorder: No Hx Substance Use: Yes - Infectious Disease Hx of Infectious Diseases: None - Past Medical History & Family History Past Medical History?: No - CARDIAC Hx Hypertension: No - PULMONARY Hx Tuberculosis: No - NEUROLOGICAL Hx Seizures: No - HEMATOLOGICAL/ONCOLOGICAL Hx Cancer: No - MUSCULOSKELETAL/RHEUMATOLOGICAL Hx Falls: No - GENITOURINARY/GYNECOLOGICAL Hx Sexually Transmitted Disorders: No - SURGICAL HISTORY Hx Surgeries: No - ANESTHESIA Hx Anesthesia: No Hx Anesthesia Reactions: No Hx Malignant Hyperthermia: No - Medical/Surgical History Reviewed & confirmed: by ok Meds Allergies/Adverse Reactions: Allergies Allergy/AdvReac Type Severity Reaction Status Date / Time alprazolam [From Xanax] Allergy RASH Verified 09/05/18 22:25 Mental Status Examination - Personal Presentation Personal Presentation: Looks younger than stated age - Affect Affect: Flat - Motor Activity Motor Activity: Psychomotor Retardation - Reliability in Providing Information Reliability in Providing Information: Fair - Speech Speech: Organized - Mood Mood: Depressed, Anxious - Formal Thought Process Formal Thought Process: No Impairment - Obsessions/Compulsions Obsessions: None Compulsions: None - Cognitive Functions Orientation: Person, Place, Situation Sensorium: Alert Attention/Concentration: Easily distracted Abstract Thinking: [place] Estimate of Intelligence: Below average Judgement: Intact, as evidence by: Insight regarding need for hospitalization - Risk Risk: Withdrawal, Self-mutilation, Diminished functioning - Strength & Assets Inventory Strength & Assets Inventory: Family support, Employment history, Cooperative - Limitations Limitations: Other (opioid addiction) Psychiatric Physical Exam - Physical Exam Reviewed and confirmed: Emergency Department Physical Exam Results - Vital Signs Recent Vital Signs: Last Vital Signs Temp 98.1 F 09/06/18 07:15 Pulse 59 L 09/06/18 07:15 Resp 18 09/06/18 07:15 BP 86/47 L 09/06/18 07:15 Pulse Ox 98 05/19/19 10:37 - Labs Result Diagrams: 09/05/18 07:30 09/05/18 07:30 Labs: Laboratory Results - last 24 hr 09/05/18 09/05/18 10:39 10:39 Urine Color Yellow Urine Appearance Clear Urine pH 6.0 Ur Specific [place] 1.025 Urine Protein 30 H Urine Glucose (UA) Negative Urine Ketones 15 H Urine Blood Negative Urine Nitrate Negative Urine Bilirubin Negative Urine Urobilinogen 0.2 Ur Leukocyte Esterase Negative Urine RBC 0 - 2 Urine WBC 2 - 5 Ur Epithelial Cells 1 - 3 Urine Bacteria Mod Fine Granular Casts 0 - 2 Urine Opiates Screen Positive H Urine Methadone Screen Negative Ur Barbiturates Screen Negative Ur Phencyclidine Scrn Negative Ur Amphetamines Screen Negative U Benzodiazepines Scrn Negative U Oth Cocaine Metabols Positive H U Cannabinoids Screen Positive H - EKG Data EKG Interpreted by: ER Physician DSM Plan - DSM 5 DSM 5 Diagnosis: Rule out major depressive disorder Opioid use disorder, severe Rule out substance-induced mood disorder Opioid withdrawals - Recommended/Plan of Treatment Treatment Recommendations and Plan of Treatment: Milieu/structure/supportive therapy SW consultation for discharge plan and social issues Med management Denied Seroquel 50 mg at the nighttime 25 mg twice a day Multivitamins Remeron 15 mg at the nighttime for depression and insomnia Klonopin 1 mg twice a day for anxiety Symptomatic treatment for opioid withdrawals including tramadol/clonidine/Zofran/Tylenol Family involvement, will call and child protective services Follow up on labs Will monitor closely Pt was educated about risk/benefits and alternatives of medications, coping strategies (safety plan, suicide prevention), relapse prevention, importance of follow up with psychiatrist and therapist, stay away from drugs/alcohol/smoking Projected ELOS: 7 days Prognosis: Guarded Discharge Plan and Discharge Criteria: Patient will pose no imminent danger to self or others - Tobacco Cessation Tobacco Use Status for the last 30 days: Light User(<=4 cigs daily, cigar/pipes not daily,or smokeless tobacco) Tobacco Use Treatment Practical Counseling Provided: Yes Tobacco Use Treatment FDA-Approved Cessation Medication Provided: No Reason for not providing: Patient refused tobacco cessation medication - Alcohol or Substance Abuse Does the patient have an Alcohol or Substance Abuse Disorder: Yes Initial Psych Certification - Initial Certification I certify that the inpatient psychiatric facility admission was medically necessary for either: Treatment which could reasonbly be expected to improve pt's condition I estimate of hospitalization is necessary for proper treatment of the patient: 7 Unit of Time: Days My plans for post-hospital care for this patient are: Inpatient rehab versus day treatment program/intensive outpatient program
[2018-09-07] MEDS: Multivitamin Therapeutic Tab PO SCH (09:34)
--- NOTE | 2018-09-07 13:32 | PCM.PYCHPN ---
Psychiatric Progress Note - Psychiatric Progress Note Patient seen today, length of contact: 30 minutes Patient Chief Complaint: "I feel fine, when I can go home?" Problems Identified/Issues Discussed: Opioid addictions, withdrawal symptoms, suicide prevention, possible referral for inpatient rehab, safety plan, maintaining sobriety. Medical Problems: Opioid withdrawals under control. Diagnostic Results: 09/05/18 07:30 09/05/18 07:30 Lab Results 09/05/18 10:39: Urine Opiates Screen Positive H, Urine Methadone Screen Negative, Ur Barbiturates Screen Negative, Ur Phencyclidine Scrn Negative, Ur Amphetamines Screen Negative, U Benzodiazepines Scrn Negative, U Oth Cocaine Metabols Positive H, U Cannabinoids Screen Positive H 09/05/18 10:39: Urine Color Yellow, Urine Appearance Clear, Urine pH 6.0, Ur Specific [place] 1.025, Urine Protein 30 H, Urine Glucose (UA) Negative, Urine Ketones 15 H, Urine Blood Negative, Urine Nitrate Negative, Urine Bilirubin Negative, Urine Urobilinogen 0.2, Ur Leukocyte Esterase Negative, Urine RBC 0 - 2, Urine WBC 2 - 5, Ur Epithelial Cells 1 - 3, Urine Bacteria Mod, Fine Granular Casts 0 - 2 09/05/18 07:30: Alcohol, Quantitative < 10 09/05/18 07:30: Salicylates < 1 L, Acetaminophen < 10.0 L 09/05/18 07:30: Sodium 143, Potassium 4.2, Chloride 107, Carbon Dioxide 22, Anion Gap 18, BUN 11, Creatinine 1.1, Est GFR ( Amer) > 60, Est GFR (Non- Af Amer) > 60, Random Glucose 102, Calcium 9.8, Magnesium 2.1, Total Bilirubin 1.1, AST 35, ALT 30, Alkaline Phosphatase 91, Total Protein 8.0, Albumin 4.4, Globulin 3.5, Albumin/Globulin Ratio 1.2 09/05/18 07:30: WBC 10.6, RBC 4.58, Hgb 14.3, Hct 42.7, MCV 93.2 D, MCH 31.2, MCHC 33.5, RDW 12.9, Plt Count 358, MPV 9.4, Neut % (Auto) 70.1 H, Lymph % (Auto) 23.3, [place] % (Auto) 5.7, Eos % (Auto) 0.8 L, Baso % (Auto) 0.1, Lymph # (Auto) 2.5, [place] # (Auto) 0.6, Eos # (Auto) 0.1, Baso # (Auto) 0.01, Absolute Neuts (auto) 7.43 H Vital Signs Temp Pulse Resp BP Pulse Ox 09/07/18 07:00 98.4 F 55 L 18 99/62 L 09/06/18 15:55 72 112/64 09/06/18 09:20 97.6 F 74 17 109/60 09/06/18 07:15 98.1 F 59 L 18 86/47 L 09/05/18 15:43 70 121/64 09/05/18 11:43 18 09/05/18 10:37 98.0 F 68 18 116/43 L 98 09/05/18 09:51 97.9 F 61 25 H 121/42 L 98 09/05/18 07:19 97.4 F L 58 L 18 106/52 L 100 09/05/18 07:16 57 L 20 106/52 L 100 DSM 5 Symptoms Update: Shortly patient presents 22-year old male, not known previous psychiatric history, patient denied history of being admitted to the psychiatric inpatient unit, denied previous suicidal attempts, patient heroin addict, using about 10 bags a day by snorting, patient is has 3 kids, 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 Patient requires further evaluation stabilization and medication management. Patient was seen and examined today in his room, patient appears to be de pressed, disengaged, sleepy, has very poor insight into his suicidal act, patient does not understand the seriousness of the consequences of his behavior. As per staff patient is self isolating, no agitation, no aggression, compliant with the medication. Patient denied any withdrawal symptoms today, reported that he feels better. So far patient tolerates medications well, no side effects observed or reported, aims 0, no EPS. material preparation worker contacted child protective services because patient was using drugs, patient tried to commit suicide being under the influence/withdrawing from the opioids while kids were at home. Impression: Rule out major depressive disorder Rule out substance-induced mood disorder Opioid use disorder Medication Change: Yes (Seroquel increased, Klonopin decreased) Medical Record Reviewed: Yes Consults ordered or reviewed: Patient was cleared by medical team in the emergency room Mental Status Examination - Cognitive Function Orientation: Person, Place, Situation Memory: Intact Attention: Poor Concentration: Poor Association: WNL Fund of Knowledge: WNL - Mood Mood: Depressed, Anxious - Affect Affect: Flat - Formal Thought Process Formal Thought Process: No Impairment - Suicidal Ideation Suicidal Ideation: No - Homicidal Ideation Homicidal Ideation: No Goal/Treatment Plan - Goal/Treatment Plan Need for Continued Stay: Remain at risks for inpatient hospitalization, Severe depression anxiety, Discharge may exacerbated symptoms, Severe functional impairment Progress Toward Problem(s) and Goals/Treatment Plan: Milieu/structure/supportive therapy SW consultation for discharge plan and social issues Med management Denied Seroquel 100 mg at the nighttime 50mg at am mood stabilization for Multivitamins Remeron 15 mg at the nighttime for depression and insomnia Klonopin will be decreased to 0.5mg po tid for anxiety with a plan to taper that off Symptomatic treatment for opioid withdrawals including tramadol/clonidine/Zofran/Tylenol Family involvement, will call and child protective services Follow up on labs Will monitor closely Pt was educated about risk/benefits and alternatives of medications, coping strategies (safety plan, suicide prevention), relapse prevention, importance of follow up with psychiatrist and therapist, stay away from drugs/alcohol/smoking Estimated Date of D/C: 09/10/18
[2018-09-08] MEDS: Multivitamin Therapeutic Tab PO SCH (08:57)
--- NOTE | 2018-09-08 15:57 | PCM.PYCHPN ---
Psychiatric Progress Note - Psychiatric Progress Note Patient seen today, length of contact: 30 minutes Patient Chief Complaint: "I have a back pain..." Problems Identified/Issues Discussed: Opioid addictions, withdrawal symptoms, suicide prevention, possible referral for inpatient rehab, safety plan, maintaining sobriety. Medical Problems: Opioid withdrawals under control. Diagnostic Results: 09/05/18 07:30 09/05/18 07:30 Lab Results 09/05/18 10:39: Urine Opiates Screen Positive H, Urine Methadone Screen Negative, Ur Barbiturates Screen Negative, Ur Phencyclidine Scrn Negative, Ur Amphetamines Screen Negative, U Benzodiazepines Scrn Negative, U Oth Cocaine Metabols Positive H, U Cannabinoids Screen Positive H 09/05/18 10:39: Urine Color Yellow, Urine Appearance Clear, Urine pH 6.0, Ur Specific [place] 1.025, Urine Protein 30 H, Urine Glucose (UA) Negative, Urine Ketones 15 H, Urine Blood Negative, Urine Nitrate Negative, Urine Bilirubin Negative, Urine Urobilinogen 0.2, Ur Leukocyte Esterase Negative, Urine RBC 0 - 2, Urine WBC 2 - 5, Ur Epithelial Cells 1 - 3, Urine Bacteria Mod, Fine Granular Casts 0 - 2 09/05/18 07:30: Alcohol, Quantitative < 10 09/05/18 07:30: Salicylates < 1 L, Acetaminophen < 10.0 L 09/05/18 07:30: Sodium 143, Potassium 4.2, Chloride 107, Carbon Dioxide 22, Anion Gap 18, BUN 11, Creatinine 1.1, Est GFR ( Amer) > 60, Est GFR (Non- Af Amer) > 60, Random Glucose 102, Calcium 9.8, Magnesium 2.1, Total Bilirubin 1.1, AST 35, ALT 30, Alkaline Phosphatase 91, Total Protein 8.0, Albumin 4.4, Globulin 3.5, Albumin/Globulin Ratio 1.2 09/05/18 07:30: WBC 10.6, RBC 4.58, Hgb 14.3, Hct 42.7, MCV 93.2 D, MCH 31.2, MCHC 33.5, RDW 12.9, Plt Count 358, MPV 9.4, Neut % (Auto) 70.1 H, Lymph % (Auto) 23.3, [place] % (Auto) 5.7, Eos % (Auto) 0.8 L, Baso % (Auto) 0.1, Lymph # (Auto) 2.5, [place] # (Auto) 0.6, Eos # (Auto) 0.1, Baso # (Auto) 0.01, Absolute Neuts (auto) 7.43 H Vital Signs Temp Pulse Resp BP Pulse Ox 09/07/18 07:00 98.4 F 55 L 18 99/62 L 09/06/18 15:55 72 112/64 09/06/18 09:20 97.6 F 74 17 109/60 09/06/18 07:15 98.1 F 59 L 18 86/47 L 09/05/18 15:43 70 121/64 09/05/18 11:43 18 09/05/18 10:37 98.0 F 68 18 116/43 L 98 09/05/18 09:51 97.9 F 61 25 H 121/42 L 98 09/05/18 07:19 97.4 F L 58 L 18 106/52 L 100 09/05/18 07:16 57 L 20 106/52 L 100 DSM 5 Symptoms Update: Shortly patient presents 22-year old male, not known previous psychiatric history, patient denied history of being admitted to the psychiatric inpatient unit, denied previous suicidal attempts, patient heroin addict, using about 10 bags a day by snorting, patient is has 3 kids, 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 Patient requires further evaluation stabilization and medication management. Patient was seen and examined next to the Nursing station, patient appears to be depressed, disengaged, pt has very poor insight into his suicidal attempt and substance dependence, pt was saying that "I will stop using, because I said so". As per staff patient is self isolating, no agitation, no aggression, compliant with the medication. Patient denied any withdrawal symptoms today, reported that he feels better. So far patient tolerates medications well, no side effects observed or reported, aims 0, no EPS. metal bonding worker contacted child protective services because patient was using drugs, patient tried to commit suicide being under the influence/withdrawing from the opioids while kids were at home. Impression: Rule out major depressive disorder Rule out substance-induced mood disorder Opioid use disorder Medication Change: Yes (Klonopin decreased, tramadol d/c) Medical Record Reviewed: Yes Mental Status Examination - Cognitive Function Orientation: Person, Place, Situation Memory: Intact Attention: Poor Concentration: Poor Association: WNL Fund of Knowledge: WNL - Mood Mood: Depressed, Anxious - Affect Affect: Flat - Formal Thought Process Formal Thought Process: No Impairment - Suicidal Ideation Suicidal Ideation: No - Homicidal Ideation Homicidal Ideation: No Goal/Treatment Plan - Goal/Treatment Plan Need for Continued Stay: Remain at risks for inpatient hospitalization, Severe depression anxiety, Discharge may exacerbated symptoms, Severe functional impairment Progress Toward Problem(s) and Goals/Treatment Plan: Milieu/structure/supportive therapy SW consultation for discharge plan and social issues Med management Denied Seroquel 100 mg at the nighttime 50mg at am mood stabilization for Multivitamins Remeron 15 mg at the nighttime for depression and insomnia Klonopin will be decreased to 0.5mg po bid for anxiety with a plan to taper that off Symptomatic treatment for opioid withdrawals including tramado l/clonidine/Zofran/Tylenol Family involvement, will call and child protective services Follow up on labs Will monitor closely Pt was educated about risk/benefits and alternatives of medications, coping strategies (safety plan, suicide prevention), relapse prevention, importance of follow up with psychiatrist and therapist, stay away from drugs/alcohol/smoking Estimated Date of D/C: 09/10/18
[2018-09-09] MEDS: Multivitamin Therapeutic Tab PO SCH (08:32)
--- NOTE | 2018-09-09 13:08 | PCM.PYCHPN ---
Psychiatric Progress Note - Psychiatric Progress Note Patient seen today, length of contact: 30 minutes Patient Chief Complaint: "I am feeling fine, if I will go to methadone clinic, they have to give me one week supply at least...." Problems Identified/Issues Discussed: Opioid addictions, withdrawal symptoms, suicide prevention, possible referral for inpatient rehab, safety plan, maintaining sobriety. Medical Problems: Opioid withdrawals under control. Diagnostic Results: 09/05/18 07:30 09/05/18 07:30 Lab Results 09/05/18 10:39: Urine Opiates Screen Positive H, Urine Methadone Screen Negative, Ur Barbiturates Screen Negative, Ur Phencyclidine Scrn Negative, Ur Amphetamines Screen Negative, U Benzodiazepines Scrn Negative, U Oth Cocaine Metabols Positive H, U Cannabinoids Screen Positive H 09/05/18 10:39: Urine Color Yellow, Urine Appearance Clear, Urine pH 6.0, Ur Specific [place] 1.025, Urine Protein 30 H, Urine Glucose (UA) Negative, Urine Ketones 15 H, Urine Blood Negative, Urine Nitrate Negative, Urine Bilirubin Negative, Urine Urobilinogen 0.2, Ur Leukocyte Esterase Negative, Urine RBC 0 - 2, Urine WBC 2 - 5, Ur Epithelial Cells 1 - 3, Urine Bacteria Mod, Fine Granular Casts 0 - 2 09/05/18 07:30: Alcohol, Quantitative < 10 09/05/18 07:30: Salicylates < 1 L, Acetaminophen < 10.0 L 09/05/18 07:30: Sodium 143, Potassium 4.2, Chloride 107, Carbon Dioxide 22, Anion Gap 18, BUN 11, Creatinine 1.1, Est GFR ( Amer) > 60, Est GFR (Non- Af Amer) > 60, Random Glucose 102, Calcium 9.8, Magnesium 2.1, Total Bilirubin 1.1, AST 35, ALT 30, Alkaline Phosphatase 91, Total Protein 8.0, Albumin 4.4, Globulin 3.5, Albumin/Globulin Ratio 1.2 09/05/18 07:30: WBC 10.6, RBC 4.58, Hgb 14.3, Hct 42.7, MCV 93.2 D, MCH 31.2, MCHC 33.5, RDW 12.9, Plt Count 358, MPV 9.4, Neut % (Auto) 70.1 H, Lymph % (Auto) 23.3, [place] % (Auto) 5.7, Eos % (Auto) 0.8 L, Baso % (Auto) 0.1, Lymph # (Auto) 2.5, [place] # (Auto) 0.6, Eos # (Auto) 0.1, Baso # (Auto) 0.01, Absolute Neuts (auto) 7.43 H Vital Signs Temp Pulse Resp BP Pulse Ox 09/07/18 07:00 98.4 F 55 L 18 99/62 L 09/06/18 15:55 72 112/64 09/06/18 09:20 97.6 F 74 17 109/60 09/06/18 07:15 98.1 F 59 L 18 86/47 L 09/05/18 15:43 70 121/64 09/05/18 11:43 18 09/05/18 10:37 98.0 F 68 18 116/43 L 98 09/05/18 09:51 97.9 F 61 25 H 121/42 L 98 09/05/18 07:19 97.4 F L 58 L 18 106/52 L 100 09/05/18 07:16 57 L 20 106/52 L 100 DSM 5 Symptoms Update: Shortly patient presents 22-year old male, not known previous psychiatric history, patient denied history of being admitted to the psychiatric inpatient unit, denied previous suicidal attempts, patient heroin addict, using about 10 bags a day by snorting, 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 Patient requires further evaluation stabilization and medication management. Patient was seen and examined in his room. pt presented to be depressed, disengaged, irritable, pt has very poor insight into his suicidal attempt and substance dependence. pt c/o back pain, said tylenol and ibuprofen are not helping, seems to be looking for substance control medications such as percocet. pt will be seen by medical team, possible lidoderm patch or muscle relaxants. SW spoke to pt's , she expressed high concern about pt's presentation, yesterday pt was asking her to bring heroin to the unit, pt also said that he will relapse right after the discharge. pt already has two suicidal attempts by trying to hang self. family meeting/conference phone call will be arranged with /pt's mother. As per staff patient is self isolating, no agitation, no aggression, compliant with the medication. Patient denied any withdrawal symptoms today, reported that he feels better. So far patient tolerates medications well, no side effects observed or reported, aims 0, no EPS. tray room worker contacted child protective services because patient was using drugs, patient tried to commit suicide being under the influence/withdrawing from the opioids while kids were at home. Impression: Rule out major depressive disorder Rule out substance-induced mood disorder Opioid use disorder Medication Change: Yes (klonopin d/c) Medical Record Reviewed: Yes Consults ordered or reviewed: Patient was cleared by medical team in the emergency room Mental Status Examination - Cognitive Function Orientation: Person, Place, Situation Memory: Intact Attention: Poor Concentration: Poor Association: WNL Fund of Knowledge: WNL - Mood Mood: Depressed, Anxious - Affect Affect: Flat - Formal Thought Process Formal Thought Process: No Impairment - Suicidal Ideation Suicidal Ideation: No - Homicidal Ideation Homicidal Ideation: No Goal/Treatment Plan - Goal/Treatment Plan Need for Continued Stay: Remain at risks for inpatient hospitalization, Severe depression anxiety, Discharge may exacerbated symptoms, Severe functional impairment Progress Toward Problem(s) and Goals/Treatment Plan: Milieu/structure/supportive therapy SW consultation for discharge plan and social issues Med management Denied Seroquel 100 mg at the nighttime 50mg at am mood stabilization for Multivitamins Remeron 15 mg at the nighttime for depression and insomnia Klonopin will be d/c Symptomatic treatment for opioid withdrawals including tramadol/clonidine /Zofran/Tylenol Family involvement, will call and child protective services Follow up on labs Will monitor closely Pt was educated about risk/benefits and alternatives of medications, coping st rategies (safety plan, suicide prevention), relapse prevention, importance of follow up with psychiatrist and therapist, stay away from drugs/alcohol/smoking Estimated Date of D/C: 09/10/18
--- NOTE | 2018-09-09 16:45 | CP.PCM.PCO ---
Physician Communication Note - Physician Communication Note Physician Communication Note: Pt seen at bedside. Will give lidoderm patch once and official consult sami
[2018-09-09] MEDS ORDERED: Lidocaine 5% Patch TD ONE (17:15)
[2018-09-10] MEDS: Multivitamin Therapeutic Tab PO SCH (08:57)
--- NOTE | 2018-09-10 12:10 | CP.PCM.CON ---
<Riya Rivera - Last Filed: 09/10/18 12:05> History of Present Illness - History of Present Illness History of Present Illness: Riya Rivera, PGY-1, Internal Medicine Consult Note for Dr. Johnson 22 year old male with past medical history of polysubstance abuse and tobacco abuse presented for evaluation of possible suicidal attempt as he tried to hang himself in his closet in the context of opiod withdrawals. Upon admission, patient had abdominal pain and body chills. These have resolved. At this time, patient reports severe lower back pain. 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 He reports that back pain has no exacerbating factors but remitting factors include percocet and heroin. Patient also reports smoking 1 PPD for 2 years. He reports using 10 bags of heroin daily for 2 years. He last used heroin on Thursday and only used one bag and as a result went through withdrawal on Thursday. 12-point ROS was unremarkable except for what was mentioned above. PMH: as stated above PSH: denies FMHx: noncontributary SHx: as stated above. denies alcohol use Allergies: alprazolam PMD: none Pharmacy: [facility] Review of Systems - Review of Systems Review of Systems: except for what was mentioned in HPI Past Patient History - Infectious Disease Hx of Infectious Diseases: None - Past Medical History & Family History Past Medical History?: No - Past Social History Smoking Status: Heavy Smoker > 10 Cigarettes Daily - CARDIAC Hx Hypertension: No - PULMONARY Hx Tuberculosis: No - NEUROLOGICAL Hx Seizures: No - HEMATOLOGICAL/ONCOLOGICAL Hx Cancer: No - MUSCULOSKELETAL/RHEUMATOLOGICAL Hx Falls: No - GENITOURINARY/GYNECOLOGICAL Hx Sexually Transmitted Disorders: No - PSYCHIATRIC Hx Psychophysiologic Disorder: No Hx Substance Use: Yes - SURGICAL HISTORY Hx Surgeries: No - ANESTHESIA Hx Anesthesia: No Hx Anesthesia Reactions: No Hx Malignant Hyperthermia: No Meds Allergies/Adverse Reactions: Allergies Allergy/AdvReac Type Severity Reaction Status Date / Time alprazolam [From Xanax] Allergy RASH Verified 09/05/18 22:25 - Medications Medications: Current Medications Acetaminophen (Tylenol 325mg Tab) 650 mg PO Q4 PRN PRN Reason: Headache Last Admin: 09/05/18 13:53 Dose: 650 mg Al Hydrox/Mg Hydrox/Simethicone (Maalox Plus 30 Ml) 30 ml PO DAILY PRN PRN Reason: Upset Stomach Cyclobenzaprine HCl (Flexeril) 5 mg PO TID [facility] Ibuprofen (Motrin Tab) 600 mg PO Q6H PRN PRN Reason: severe pain 7/10, fever Last Admin: 09/09/18 16:17 Dose: 600 mg Magnesium Hydroxide (Milk Of Magnesia) 30 ml PO DAILY PRN PRN Reason: Constipation Mirtazapine (Remeron) 15 mg PO HS [facility] Last Admin: 09/09/18 21:19 Dose: 15 mg Multivitamins (Thera Tab) 1 tab PO 0800 [facility] Last Admin: 09/10/18 08:57 Dose: 1 tab Nicotine (Nicoderm Cq) 1 patch TD DAILY [facility] Last Admin: 09/10/18 08:57 Dose: 1 patch Ondansetron HCl (Zofran Odt) 4 mg PO Q8H PRN PRN Reason: Nausea/Vomiting Quetiapine Fumarate (Seroquel) 50 mg PO DAILY [facility]; Protocol Last Admin: 09/10/18 08:57 Dose: 50 mg Quetiapine Fumarate (Seroquel) 100 mg PO HS [facility]; Protocol Last Admin: 09/09/18 21:19 Dose: 100 mg Physical Exam - Constitutional Appears: Well - Head Exam Head Exam: ATRAUMATIC, NORMAL INSPECTION, NORMOCEPHALIC - Eye Exam Eye Exam: EOMI, Normal appearance, PERRL Pupil Exam: NORMAL ACCOMODATION, PERRL - ENT Exam ENT Exam: Mucous Membranes Moist, Normal Exam - Neck Exam Neck exam: Positive for: Normal Inspection - Respiratory Exam Respiratory Exam: Clear to Auscultation Bilateral, NORMAL BREATHING PATTERN. absent: Rales, Rhonchi, Wheezes - Cardiovascular Exam Cardiovascular Exam: Bradycardia, REGULAR RHYTHM, +S1, +S2. absent: Clicks, Gallop, Rubs - GI/Abdominal Exam GI & Abdominal Exam: Normal Bowel Sounds, Soft. absent: Distended, Firm, Guarding, Tenderness - Extremities Exam Extremities exam: Positive for: full ROM, normal capillary refill, normal inspection - Back Exam Back exam: NORMAL INSPECTION, paraspinal tenderness (lumbar) - Neurological Exam Neurological exam: Alert, CN II-XII Intact, Normal Gait, Oriented x3, Reflexes Normal - Psychiatric Exam Psychiatric exam: Normal Affect, Normal Mood - Skin Skin Exam: Dry, Intact, Normal Color, Warm Results - Vital Signs Recent Vital Signs: Last Vital Signs Temp 97.0 F L 09/10/18 07:28 Pulse 41 L 09/10/18 07:28 Resp 18 09/10/18 07:28 BP 99/60 L 09/10/18 07:28 Pulse Ox 98 09/05/18 10:37 - Labs Result Diagrams: 09/05/18 07:30 09/05/18 07:30 Assessment & Plan - Assessment and Plan (Free Text) Assessment: 22 year old male with past medical history of polysubstance abuse and tobacco abuse presented for suspected suicidal attempt due to opiod withdrawal. Medicine was consulted for lumbar tenderness. Plan: Nonspecific low back pain -Patient has significant low back pain history with opiod abuse -Patient has had bradycardia in the 40s and blood pressure in 90s/60s -Given lidoderm patch yesterday for pain -Will hold off on lidoderm patch at this time due to bradycardia and blood pressure -Avoid opiods due to opiod abuse -Would advise using tylenol and ibuprofen for pain management Opiod abuse -COWS: 1 -Patient claims using 10 bags daily -Avoid using opiod pain medication Medicine will sign off at this time. For worsening or new complaints, please reconsult. Patient plan discussed with Dr. Johnson. - Date & Time Date: 09/10/18 Time: 12:10 <Pb Johnson - Last Filed: 09/10/18 15:45> Meds - Medications Medications: Current Medications Acetaminophen (Tylenol 325mg Tab) 650 mg PO Q4 PRN PRN Reason: Headache Last Admin: 09/05/18 13:53 Dose: 650 mg Al Hydrox/Mg Hydrox/Simethicone (Maalox Plus 30 Ml) 30 ml PO DAILY PRN PRN Reason: Upset Stomach Cyclobenzaprine HCl (Flexeril) 5 mg PO TID [facility] Last Admin: 09/10/18 12:52 Dose: 5 mg Ibuprofen (Motrin Tab) 600 mg PO Q6H PRN PRN Reason: severe pain 7/10, fever Last Admin: 09/09/18 16:17 Dose: 600 mg Magnesium Hydroxide (Milk Of Magnesia) 30 ml PO DAILY PRN PRN Reason: Constipation Mirtazapine (Remeron) 30 mg PO HS [facility] Multivitamins (Thera Tab) 1 tab PO 0800 [facility] Last Admin: 09/10/18 08:57 Dose: 1 tab Nicotine (Nicoderm Cq) 1 patch TD DAILY [facility] Last Admin: 09/10/18 08:57 Dose: 1 patch Ondansetron HCl (Zofran Odt) 4 mg PO Q8H PRN PRN Reason: Nausea/Vomiting Quetiapine Fumarate (Seroquel) 50 mg PO DAILY [facility]; Protocol Last Admin: 09/10/18 08:57 Dose: 50 mg Quetiapine Fumarate (Seroquel) 100 mg PO HS [facility]; Protocol Last Admin: 09/09/18 21:19 Dose: 100 mg Results - Vital Signs Recent Vital Signs: Last Vital Signs Temp 97.0 F L 09/10/18 07:28 Pulse 41 L 09/10/18 07:28 Resp 18 09/10/18 07:28 BP 99/60 L 09/10/18 07:28 Pulse Ox 98 09/05/18 10:37 - Labs Result Diagrams: 09/05/18 07:30 09/05/18 07:30 Attending/Attestation - Attestation I have personally seen and examined this patient.: Yes I have fully participated in the care of the patient.: Yes I have reviewed all pertinent clinical information: Yes Notes (Text): 09/10/18 15:40 22 year old male with past medical history of polysubstance abuse who is curre ntly admitted underwent psychiatric unit for withdrawal symptoms. Medical consultation was requested for medical evaluation and chronic low back pain. Utox is positive for opiates, cocaine and cannabinoids. Agree with tylenol or motrin prn for pain. Given history of substance abuse avoid narcotic use for pain control. In addition since he has low normal blood pressure and bradycardia will discontinue lidoderm patch and clonidine given his withdrawal symptoms are minimal at this time. Counselled on risks of continued substance abuse. Thank you Dr. Carpio for allowing us to participate in the care of this patient. Please re-consult as needed. Pb Johnson MD Hospitalist.
--- NOTE | 2018-09-10 14:29 | PCM.PYCHPN ---
Psychiatric Progress Note - Psychiatric Progress Note Patient seen today, length of contact: 30 minutes Patient Chief Complaint: "I have no other choice other than to go to rehab.." Problems Identified/Issues Discussed: Opioid addictions, withdrawal symptoms, suicide prevention, possible referral for inpatient rehab, safety plan, maintaining sobriety. Medical Problems: Opioid withdrawals under control. Diagnostic Results: 09/05/18 07:30 09/05/18 07:30 Lab Results 09/05/18 10:39: Urine Opiates Screen Positive H, Urine Methadone Screen Negative, Ur Barbiturates Screen Negative, Ur Phencyclidine Scrn Negative, Ur Amphetamines Screen Negative, U Benzodiazepines Scrn Negative, U Oth Cocaine Metabols Positive H, U Cannabinoids Screen Positive H 09/05/18 10:39: Urine Color Yellow, Urine Appearance Clear, Urine pH 6.0, Ur Specific [place] 1.025, Urine Protein 30 H, Urine Glucose (UA) Negative, Urine Ketones 15 H, Urine Blood Negative, Urine Nitrate Negative, Urine Bilirubin Negative, Urine Urobilinogen 0.2, Ur Leukocyte Esterase Negative, Urine RBC 0 - 2, Urine WBC 2 - 5, Ur Epithelial Cells 1 - 3, Urine Bacteria Mod, Fine Granular Casts 0 - 2 09/05/18 07:30: Alcohol, Quantitative < 10 09/05/18 07:30: Salicylates < 1 L, Acetaminophen < 10.0 L 09/05/18 07:30: Sodium 143, Potassium 4.2, Chloride 107, Carbon Dioxide 22, Anion Gap 18, BUN 11, Creatinine 1.1, Est GFR ( Amer) > 60, Est GFR (Non- Af Amer) > 60, Random Glucose 102, Calcium 9.8, Magnesium 2.1, Total Bilirubin 1.1, AST 35, ALT 30, Alkaline Phosphatase 91, Total Protein 8.0, Albumin 4.4, Globulin 3.5, Albumin/Globulin Ratio 1.2 09/05/18 07:30: WBC 10.6, RBC 4.58, Hgb 14.3, Hct 42.7, MCV 93.2 D, MCH 31.2, MCHC 33.5, RDW 12.9, Plt Count 358, MPV 9.4, Neut % (Auto) 70.1 H, Lymph % (Auto) 23.3, Mcnairy % (Auto) 5.7, Eos % (Auto) 0.8 L, Baso % (Auto) 0.1, Lymph # (Auto) 2.5, [place] # (Auto) 0.6, Eos # (Auto) 0.1, Baso # (Auto) 0.01, Absolute Neuts (auto) 7.43 H Vital Signs Temp Pulse Resp BP Pulse Ox 09/07/18 07:00 98.4 F 55 L 18 99/62 L 09/06/18 15:55 72 112/64 09/06/18 09:20 97.6 F 74 17 109/60 09/06/18 07:15 98.1 F 59 L 18 86/47 L 09/05/18 15:43 70 121/64 09/05/18 11:43 18 09/05/18 10:37 98.0 F 68 18 116/43 L 98 09/05/18 09:51 97.9 F 61 25 H 121/42 L 98 09/05/18 07:19 97.4 F L 58 L 18 106/52 L 100 09/05/18 07:16 57 L 20 106/52 L 100 DSM 5 Symptoms Update: Shortly patient presents 22-year old male, not known previous psychiatric history, patient denied history of being admitted to the psychiatric inpatient unit, denied previous suicidal attempts, patient heroin addict, using about 10 bags a day by snorting, patient is has 3 kids, 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 Patient requires further evaluation stabilization and medication management. Patient was seen and examined at the treatment team meeting. pt presented to be depressed, disengaged, irritable. pt spoke to his and said "now I have no other choice other than to go to inpatient rehab.." 09/09/18 SW spoke to pt's , she expressed high concern about pt's presentation, yesterday pt was asking her to bring heroin to the unit, pt also said that he will relapse right after the discharge. pt already has two suicidal attempts by trying to hang self. family meeting/conference phone call took place 09/09/18, child protective services involved, pt's is concerned abut pt's safety, pt tried to hang self twice already. As per staff patient is self isolating, no agitation, no aggression, compliant with the medication. Patient denied any withdrawal symptoms today, reported that he feels better. So far patient tolerates medications well, no side effects observed or reported, aims 0, no EPS. glueline worker contacted child protective services because patient was using drugs, patient tried to commit suicide being under the influence/withdrawing from the opioids while kids were at home. Impression: Rule out major depressive disorder Rule out substance-induced mood disorder Opioid use disorder Medication Change: Yes (flexeril, Remeron increased ) Medical Record Reviewed: Yes Mental Status Examination - Cognitive Function Orientation: Person, Place, Situation Memory: Intact Attention: Poor Concentration: Poor Association: WNL Fund of Knowledge: WNL - Mood Mood: Depressed, Anxious - Affect Affect: Flat - Formal Thought Process Formal Thought Process: No Impairment - Suicidal Ideation Suicidal Ideation: No - Homicidal Ideation Homicidal Ideation: No Goal/Treatment Plan - Goal/Treatment Plan Need for Continued Stay: Remain at risks for inpatient hospitalization, Severe depression anxiety, Discharge may exacerbated symptoms, Severe functional impairment Progress Toward Problem(s) and Goals/Treatment Plan: Milieu/structure/supportive therapy SW consultation for discharge plan and social issues Med management Denied Seroquel 100 mg at the nighttime 50mg at am mood stabilization for Multivitamins Remeron 30 mg at the nighttime for depression and insomnia Klonopin d/c Symptomatic treatment for opioid withdrawals including tramadol/clonidine/Zofran/Tylenol Family involvement, child protective services involved Follow up on labs Will monitor closely Pt was educated about risk/benefits and alternatives of medications, coping strategies (safety plan, suicide prevention), relapse prevention, importance of follow up with psychiatrist and therapist, stay away from drugs/alcohol/smoking Estimated Date of D/C: 09/14/18
[2018-09-10] MEDS ORDERED: Lidocaine 5% Patch TD ONE ×2 (16:37→16:43)
[2018-09-11] MEDS: Multivitamin Therapeutic Tab PO SCH (08:31)
--- NOTE | 2018-09-11 09:43 | PCM.PYCHPN ---
Psychiatric Progress Note - Psychiatric Progress Note Patient seen today, length of contact: 30 minutes Problems Identified/Issues Discussed: I reviewed assessment and recent notes. I met with patient at bedside. He is alert and oriented x3. Superficially cooperative though disengaged and perf unctory with his responses. Affect is notably constricted. Patient denies any new concerns including side effects, discomfort or pain. He reports chronic back pain, unchanged. He doesn't appear to be in physical distress. Thought process is coherent without evidence of perceptual disturbance. Staff notes indicate that patient has been fairly visible, social at times with select peers and participates a little in groups. There have been no alarming behaviors and he is generally appropriate with others. Sleeping well. Compliant with medications without any major behavioral issues overnight. Diagnostic Results: Rule out major depressive disorder Rule out substance-induced mood disorder Opioid use disorder Medication Change: No ( ) Medical Record Reviewed: Yes Mental Status Examination - Cognitive Function Orientation: Person, Place, Situation Memory: Intact Attention: Poor Concentration: Poor Association: WNL Fund of Knowledge: WNL - Mood Mood: Depressed, Anxious - Affect Affect: Flat - Formal Thought Process Formal Thought Process: No Impairment - Suicidal Ideation Suicidal Ideation: No - Homicidal Ideation Homicidal Ideation: No Goal/Treatment Plan - Goal/Treatment Plan Need for Continued Stay: Remain at risks for inpatient hospitalization, Severe depression anxiety, Discharge may exacerbated symptoms, Severe functional impairment Progress Toward Problem(s) and Goals/Treatment Plan: * c/w current tx and plan {Symptomatic treatment for opioid withdrawals including tramadol/clonidine/Zofran/Tylenol} * No new weekend lab results noted thus far * Vitals reviewed and noted below: 09/10/18 09/10/18 09/10/18 07:27 07:28 16:07 Temperature 97.3 F L 97.0 F L Pulse Rate 61 41 L 100 H Respiratory 18 18 Rate Blood Pressure 89/56 L 99/60 L 133/74 Estimated Date of D/C: 09/14/18
[2018-09-12] MEDS: Multivitamin Therapeutic Tab PO SCH (08:08)
--- NOTE | 2018-09-12 09:09 | PCM.PYCHPN ---
Psychiatric Progress Note - Psychiatric Progress Note Patient seen today, length of contact: 30 minutes Problems Identified/Issues Discussed: I reviewed recent notes and met with patient at bedside again. He remains alert and oriented x3. Superficially cooperative though still disengaged and perfunctory with his responses. Affect is constricted and he reports his mood as "good, getting better". Patient denies any new concerns including side effects, discomfort or pain. He reports chronic back pain, unchanged. He doesn't appear to be in physical distress. Thought process is coherent without evidence of perceptual disturbance. Staff notes indicate that patient has been fairly visible, social at times with select peers and participates a little in groups. Seems more reactive this weekend. There have been no alarming behaviors and he is generally appropriate with others. Sleeping well. Compliant with medications without any major behavioral issues over the weekend. Patient has intermittent bouts of anxiety on the unit and vistaril 50 mg po q8 prn was started on 09/11/18. Patient reported that he has an allergy to xanax. Diagnostic Results: Rule out major depressive disorder Rule out substance-induced mood disorder Opioid use disorder Medication Change: No ( ) Medical Record Reviewed: Yes Mental Status Examination - Cognitive Function Orientation: Person, Place, Situation Memory: Intact Attention: Poor Concentration: Poor Association: WNL Fund of Knowledge: WNL - Mood Mood: Depressed, Anxious - Affect Affect: Flat - Formal Thought Process Formal Thought Process: No Impairment - Suicidal Ideation Suicidal Ideation: No - Homicidal Ideation Homicidal Ideation: No Goal/Treatment Plan - Goal/Treatment Plan Need for Continued Stay: Remain at risks for inpatient hospitalization, Severe depression anxiety, Discharge may exacerbated symptoms, Severe functional impairment Progress Toward Problem(s) and Goals/Treatment Plan: * c/w current tx and plan {Symptomatic treatment for opioid withdrawals including tramadol/clonidine/Zofran/Tylenol} * Vistaril 50 mg po q8 prn: anxiety started on 09/11/18 (patient reports he is allergic to xanax) * No new weekend lab results noted thus far * Vitals reviewed and noted below: Selected Entries 09/11/18 09/11/18 07:07 16:00 Temperature 97.9 F Pulse Rate 43 L 89 Respiratory 20 Rate Blood Pressure 103/58 L 100/68 Estimated Date of D/C: 09/14/18
[2018-09-13] MEDS: Multivitamin Therapeutic Tab PO SCH (09:02)
--- NOTE | 2018-09-13 09:29 | PCM.PYCHPN ---
Psychiatric Progress Note - Psychiatric Progress Note Patient seen today, length of contact: 30 minutes Problems Identified/Issues Discussed: I reviewed recent notes and met with patient at bedside again. He remains alert and oriented x3. Superficially cooperative and more engaged during my q uestioning today. He reports that his mood is "good, getting better" and denies any new concerns including side effects, discomfort or pain. He reports chronic back pain, unchanged. He doesn't appear to be in physical distress. Affect is more reactive and mood congruent today. Demonstrates more range. Thought process is coherent without evidence of perceptual disturbance. Staff notes indicate that patient has been fairly visible, social at times with select peers and participates a little in groups. Seems brighter, more reactive and more motivated for sobriety this weekend. Indicated his motivation was to get better for his kids. There have been no alarming behaviors and patient is generally appropriate with others. More social with Ukrainian-speaking peers. Sleeping well. Compliant with medications without any major behavioral issues over the weekend. Patient has intermittent bouts of anxiety on the unit and vistaril 50 mg po q8 prn was started on 09/11/18 since patient reported having an allergy to xanax. Diagnostic Results: Rule out major depressive disorder Rule out substance-induced mood disorder Opioid use disorder Medication Change: No ( ) Medical Record Reviewed: Yes Mental Status Examination - Cognitive Function Orientation: Person, Place, Situation Memory: Intact Attention: WNL Concentration: WNL Association: WNL Fund of Knowledge: WNL - Mood Mood: Depressed (better), Anxious - Affect Affect: Flat (more reactive with increased range) - Speech Speech: Appropriate - Formal Thought Process Formal Thought Process: No Impairment - Suicidal Ideation Suicidal Ideation: No - Homicidal Ideation Homicidal Ideation: No Goal/Treatment Plan - Goal/Treatment Plan Need for Continued Stay: Remain at risks for inpatient hospitalization, Severe depression anxiety, Discharge may exacerbated symptoms, Severe functional impairment Progress Toward Problem(s) and Goals/Treatment Plan: * c/w current tx and plan {Symptomatic treatment for opioid withdrawals including tramadol/clonidine/Zofran/Tylenol} * Vistaril 50 mg po q8 prn: anxiety started on 09/11/18 (patient reports he is allergic to xanax) * No new lab results noted * Vitals reviewed and noted below: 09/12/18 09/12/18 07:00 16:00 Temperature 98 F Pulse Rate 66 80 Respiratory 19 Rate Blood Pressure 105/66 110/70 Estimated Date of D/C: 09/14/18
[2018-09-14 07:35] VITALS: RESP 20
[2018-09-14] MEDS: Multivitamin Therapeutic Tab PO SCH (09:21)
--- NOTE | 2018-09-14 15:12 | PCM.PYCHPN ---
Psychiatric Progress Note - Psychiatric Progress Note Patient seen today, length of contact: 30 minutes Patient Chief Complaint: "I am doing fine, I think I am ready to go to rehab.." Problems Identified/Issues Discussed: Opioid addictions, withdrawal symptoms, suicide prevention, possible referral for inpatient rehab, safety plan, maintaining sobriety. Medical Problems: Opioid withdrawals under control. Diagnostic Results: 09/05/18 07:30 09/05/18 07:30 Lab Results 09/05/18 10:39: Urine Opiates Screen Positive H, Urine Methadone Screen Negative, Ur Barbiturates Screen Negative, Ur Phencyclidine Scrn Negative, Ur A mphetamines Screen Negative, U Benzodiazepines Scrn Negative, U Oth Cocaine Metabols Positive H, U Cannabinoids Screen Positive H 09/05/18 10:39: Urine Color Yellow, Urine Appearance Clear, Urine pH 6.0, Ur Specific [place] 1.025, Urine Protein 30 H, Urine Glucose (UA) Negative, Urine Ketones 15 H, Urine Blood Negative, Urine Nitrate Negative, Urine Bilirubin Negative, Urine Urobilinogen 0.2, Ur Leukocyte Esterase Negative, Urine RBC 0 - 2, Urine WBC 2 - 5, Ur Epithelial Cells 1 - 3, Urine Bacteria Mod, Fine Granular Casts 0 - 2 09/05/18 07:30: Alcohol, Quantitative < 10 09/05/18 07:30: Salicylates < 1 L, Acetaminophen < 10.0 L 09/05/18 07:30: Sodium 143, Potassium 4.2, Chloride 107, Carbon Dioxide 22, Anion Gap 18, BUN 11, Creatinine 1.1, Est GFR ( Amer) > 60, Est GFR (Non- Af Amer) > 60, Random Glucose 102, Calcium 9.8, Magnesium 2.1, Total Bilirubin 1.1, AST 35, ALT 30, Alkaline Phosphatase 91, Total Protein 8.0, Albumin 4.4, Globulin 3.5, Albumin/Globulin Ratio 1.2 09/05/18 07:30: WBC 10.6, RBC 4.58, Hgb 14.3, Hct 42.7, MCV 93.2 D, MCH 31.2, MCHC 33.5, RDW 12.9, Plt Count 358, MPV 9.4, Neut % (Auto) 70.1 H, Lymph % (Auto) 23.3, [place] % (Auto) 5.7, Eos % (Auto) 0.8 L, Baso % (Auto) 0.1, Lymph # (Auto) 2.5, [place] # (Auto) 0.6, Eos # (Auto) 0.1, Baso # (Auto) 0.01, Absolute Neuts (auto) 7.43 H Vital Signs Temp Pulse Resp BP Pulse Ox 09/07/18 07:00 98.4 F 55 L 18 99/62 L 09/06/18 15:55 72 112/64 09/06/18 09:20 97.6 F 74 17 109/60 09/06/18 07:15 98.1 F 59 L 18 86/47 L 09/05/18 15:43 70 121/64 09/05/18 11:43 18 09/05/18 10:37 98.0 F 68 18 116/43 L 98 09/05/18 09:51 97.9 F 61 25 H 121/42 L 98 09/05/18 07:19 97.4 F L 58 L 18 106/52 L 100 09/05/18 07:16 57 L 20 106/52 L 100 DSM 5 Symptoms Update: I reviewed recent notes and met with patient at bedside again. He remains alert and oriented x3. Superficially cooperative and more engaged during my questioning today. He reports that his mood is "good, getting better" and denie s any new concerns including side effects, discomfort or pain. He reports chronic back pain, unchanged. He doesn't appear to be in physical distress. Affect is more reactive and mood congruent today. Demonstrates more range. Thought process is coherent without evidence of perceptual disturbance. Staff notes indicate that patient has been fairly visible, social at times with select peers and participates a little in groups. Seems brighter, more reactive and more motivated for sobriety this weekend. Indicated his motivation was to get better for his kids. There have been no alarming behaviors and patient is generally appropriate with others. More social with Polish-speaking peers. Sleeping well. Compliant with medications without any major behavioral issues over the holiday weekend. Patient has intermittent bouts of anxiety on the unit and vistaril 50 mg po q8 prn was started on 09/11/18 since patient reported having an allergy to xanax. Diagnostic Results: Rule out major depressive disorder Rule out substance-induced mood disorder Opioid use disorder Medication Change: No ( ) Medical Record Reviewed: Yes Mental Status Examination - Cognitive Function Orientation: Person, Place, Situation Memory: Intact Attention: WNL Concentration: WNL Association: WNL Fund of Knowledge: WNL - Mood Mood: Depressed (better), Anxious - Affect Affect: Flat (more reactive with increased range) - Speech Speech: Appropriate - Formal Thought Process Formal Thought Process: No Impairment - Suicidal Ideation Suicidal Ideation: No - Homicidal Ideation Homicidal Ideation: No Goal/Treatment Plan - Goal/Treatment Plan Need for Continued Stay: Remain at risks for inpatient hospitalization, Severe depression anxiety, Discharge may exacerbated symptoms, Severe functional impairment Progress Toward Problem(s) and Goals/Treatment Plan: Milieu/structure/supportive therapy SW consultation for discharge plan and social issues Med management Denied Seroquel 100 mg at the nighttime 50mg at am mood stabilization for Multivitamins Remeron 30 mg at the nighttime for depression and insomnia Klonopin d/c Symptomatic treatment for opioid withdrawals including tramadol/clonidine/Zofran/Tylenol Family involvement, child protective services involved Follow up on labs Will monitor closely Pt was educated about risk/benefits and alternatives of medications, coping strategies (safety plan, suicide prevention), relapse prevention, importance of follow up with psychiatrist and therapist, stay away from drugs/alcohol/smoking Patient was accepted to inpatient rehab tomorrow September 15, 2018 Estimated Date of D/C: 09/15/18
[2018-09-15 07:26] VITALS: BP 103/58; PULSE 58; TEMP 97.4
[2018-09-15] MEDS: Multivitamin Therapeutic Tab PO SCH (08:25)
== END 2018-09-15 11:59 | disposition home or self-care (01) | DRG 754 ==
LOC: ED 07:07 → ERH 10:09 → PSYC 10:46
PROVIDERS: ADMIT Psychiatry & Neurology Psychiatry; ATTEND Psychiatry & Neurology Psychiatry
PROC: GZ3ZZZZ Medication Management (ICD-10-PCS; principal; 2018-09-05)
DX: F32.9 Major depressive disorder, single episode, unspecified (principal); F11.23 Opioid dependence with withdrawal; G47.00 Insomnia, unspecified; G89.29 Other chronic pain; M54.5 Low back pain; F17.210 Nicotine dependence, cigarettes, uncomplicated